=== PATIENT | male | born 1950 | race Caucasian/White ===

== ENCOUNTER → 2016-04-21 | Outpatient (CLI) | payer OTHER ==
[2016-04-21 19:42] LABS: INR 2.6 (<1.1); Prothrombin Time 24.8 sec (9.0-12.0)
== END | disposition home or self-care (01) ==
LOC: MMGSC 14:25
PROVIDERS: ATTEND Internal Medicine Cardiovascular Disease
DX: I48.2 Chronic atrial fibrillation (principal); Z95.2 Presence of prosthetic heart valve
CPT/HCPCS: 36415; 85610

== ENCOUNTER → 2016-05-16 | Outpatient (CLI) | payer OTHER ==
[2016-05-16 20:17] LABS: INR 3.3 (<1.1); Prothrombin Time 32.2 sec (9.0-12.0)
== END | disposition home or self-care (01) ==
LOC: MMGSC 10:42
PROVIDERS: ATTEND Internal Medicine Cardiovascular Disease
DX: I48.2 Chronic atrial fibrillation (principal); Z95.2 Presence of prosthetic heart valve
CPT/HCPCS: 36415; 85610

== ENCOUNTER → 2016-06-26 | Outpatient (CLI) | payer OTHER ==
[2016-06-26 19:32] LABS: Prothrombin Time 29.1 sec (9.0-12.0)
== END | disposition home or self-care (01) ==
LOC: MMGSC 11:35
PROVIDERS: ATTEND Internal Medicine Cardiovascular Disease
DX: I48.2 Chronic atrial fibrillation (principal); Z95.2 Presence of prosthetic heart valve
CPT/HCPCS: 36415; 85610

== ENCOUNTER → 2016-07-25 | Outpatient (CLI) | payer OTHER ==
[2016-07-25 18:55] LABS: INR 3.6 (<1.1); Prothrombin Time 34.7 sec (9.0-12.0)
== END ==
LOC: MMGSC 14:26
PROVIDERS: ATTEND Internal Medicine Cardiovascular Disease
DX: I48.2 Chronic atrial fibrillation (principal); Z95.2 Presence of prosthetic heart valve
CPT/HCPCS: 36415; 85610

== ENCOUNTER → 2016-09-12 | Outpatient (CLI) | payer OTHER ==
[2016-09-12 18:15] LABS: INR 3.4 (<1.1); Prothrombin Time 32.8 sec (9.0-12.0)
== END | disposition home or self-care (01) ==
LOC: MMGSC 11:53
PROVIDERS: ATTEND Internal Medicine Cardiovascular Disease
DX: I48.2 Chronic atrial fibrillation (principal); Z95.2 Presence of prosthetic heart valve
CPT/HCPCS: 36415; 85610

== ENCOUNTER → 2016-11-03 | Outpatient (CLI) | payer OTHER ==
[2016-11-03 20:17] LABS: INR 3.7 (<1.2); Prothrombin Time 36.1 sec (9.0-12.0)
== END ==
LOC: MMGSC 11:42
PROVIDERS: ATTEND Internal Medicine Cardiovascular Disease
DX: I48.2 Chronic atrial fibrillation (principal); Z95.2 Presence of prosthetic heart valve
CPT/HCPCS: 36415; 85610

== ENCOUNTER → 2016-12-18 | Outpatient (CLI) | payer OTHER ==
[2016-12-18 22:41] LABS: INR 4.1 (<1.2); Prothrombin Time 39.9 sec (9.0-12.0)
== END ==
LOC: MMGSC 11:32
PROVIDERS: ATTEND Internal Medicine Cardiovascular Disease
DX: I48.2 Chronic atrial fibrillation (principal); Z95.2 Presence of prosthetic heart valve
CPT/HCPCS: 36415; 85610

== ENCOUNTER → 2017-05-05 | Outpatient (CLI) | payer OTHER ==
[2017-05-05 22:20] LABS: Basophils % (A) 1 %; Eosinophils # (A) 0.1 k/uL (0-0.7); Eosinophils % (A) 1 %; HCT 44.6 % (39.0-53.0); HGB 13.9 gm/dL (13.0-17.5); Lymphocytes # (A) 1.1 k/uL (1.0-4.8); Lymphocytes % (A) 25 %; MCH 29.9 pg (25.0-35.0); MCHC 31.2 g/dL (31.0-37.0); MCV 95.7 fL (80.0-100.0); Mean Platelet Volume 10.7; Monocytes # (A) 0.4 k/uL (0-1.0); Monocytes % (A) 9 %; Neutrophils # (A) 2.7 k/uL (1.3-7.7); Neutrophils % (A) 62 %; Platelet Count 188 k/uL (150-450); RBC 4.66 m/uL (4.30-5.90); RDW 13.5 % (11.5-15.5); WBC 4.3 k/uL (3.8-10.6)
== END | disposition home or self-care (01) ==
LOC: MMGSC 12:01
PROVIDERS: ATTEND Internal Medicine
DX: D72.819 Decreased white blood cell count, unspecified (principal)
CPT/HCPCS: 36415; 85025

== ENCOUNTER → 2017-05-05 | Outpatient (CLI) | payer OTHER ==
[2017-05-05 18:43] LABS: INR 3.4 (<1.2); Prothrombin Time 30.1 sec (9.0-12.0)
== END | disposition home or self-care (01) ==
LOC: MMGSC 12:06
PROVIDERS: ATTEND Internal Medicine Cardiovascular Disease
DX: I48.2 Chronic atrial fibrillation (principal); Z95.2 Presence of prosthetic heart valve
CPT/HCPCS: 85610

== ENCOUNTER → 2017-07-02 | Outpatient (CLI) | payer OTHER ==
[2017-07-02 18:29] LABS: INR 3.7 (<1.2); Prothrombin Time 33.2 sec (9.0-12.0)
== END | disposition home or self-care (01) ==
LOC: MMGSC 10:21
PROVIDERS: ATTEND Internal Medicine Cardiovascular Disease
DX: I48.2 Chronic atrial fibrillation (principal); Z95.2 Presence of prosthetic heart valve
CPT/HCPCS: 36415; 85610

== ENCOUNTER 2017-09-01 11:49 | Emergency (ER) | payer OTHER ==
--- NOTE | 2017-09-01 12:20 | ED ---
Lower Extremity Injury HPI - General Chief Complaint: Extremity Injury, Lower Stated Complaint: LEFT KNEE/ANLKE INJURY Time Seen by Provider: 09/01/17 12:12 Source: patient Mode of arrival: wheelchair Limitations: no limitations - History of Present Illness Initial Comments: 66 year-old male patient presented to the emergency department today for evaluation of left knee pain and instability. Patient states that approximately an hour and a half ago he was walking up the stairs when he twisted his left knee. Patient states that he has some pain but his chief concern is that the knee feels unstable like it wants to give out. Patient states it feels like it is collapsing in to the medial aspect. States it is swollen. Denies any difficulty with range of motion however does report increased pain with full flexion. Patient denies any falls or other injuries. Denies any numbness or tingling to the extremity. Patient denies any headache, neck pain, back pain, chest pain, shortness of breath, dizziness, weakness, abdominal pain, nausea, vomiting, or difficulties with bowel movements or urination. - Related Data Home Medications Medication Instructions Recorded Confirmed Diltiazem HCl 120 mg PO DAILY 09/01/17 09/01/17 Metoprolol Succinate [Toprol Xl] 50 mg PO DAILY 09/01/17 09/01/17 Multivitamin [Men's Multi-Vitamin] 1 each PO DAILY 09/01/17 09/01/17 Rosuvastatin [Crestor] 20 mg PO DAILY 09/01/17 09/01/17 Warfarin [Coumadin] 7.5 mg PO DAILY 09/01/17 09/01/17 Allergies Allergy/AdvReac Type Severity Reaction Status Date / Time No Known Allergies Allergy Verified 09/01/17 12:00 Review of Systems ROS Statement: Those systems with pertinent positive or pertinent negative responses have been documented in the HPI. ROS Other: All systems not noted in ROS Statement are negative. Past Medical History Past Medical History: Hyperlipidemia, Hypertension History of Any Multi-Drug Resistant Organisms: None Reported Past Surgical History: Bowel Resection, Hernia Repair Additional Past Surgical History / Comment(s): vasectomy, mechanical mitral valve Past Psychological History: No Psychological Hx Reported Smoking Status: Never smoker Past Alcohol Use History: None Reported Past Drug Use History: None Reported General Exam Limitations: no limitations General appearance: alert, in no apparent distress, other (This is a well- developed, well-nourished adult male patient in no acute distress. Vital signs upon presentation are temperature 97.7F, pulse 66, respirations 16, blood pressure 98/58, pulse ox 97% on room air.) Eye exam: Present: normal appearance, PERRL, EOMI. Absent: scleral icterus, conjunctival injection, periorbital swelling ENT exam: Present: normal exam, normal oropharynx, mucous membranes moist Respiratory exam: Present: normal lung sounds bilaterally. Absent: respiratory distress, wheezes, rales, rhonchi, stridor Cardiovascular Exam: Present: regular rate, normal rhythm, normal heart sounds. Absent: systolic murmur, diastolic murmur, rubs, gallop, clicks Extremities exam: Present: full ROM, tenderness (Left medial knee tenderness), normal capillary refill, joint swelling (Swelling to the medial aspect of the left knee), other (Patient has full range of motion to the left knee, increased pain with full flexion. No instability or pain noted to valgus or varus maneuvers. Skin to the leg is pink, warm, and dry. Cap refills less than 3 seconds. Pedal and posttibial pulses are 2+ and equal bilaterally.). Absent: normal inspection, pedal edema, calf tenderness Neurological exam: Present: alert, oriented X3, CN II-XII intact Psychiatric exam: Present: normal affect, normal mood Skin exam: Present: warm, dry, intact, normal color. Absent: rash Course Vital Signs 09/01/17 09/01/17 11:55 13:17 Temperature 97.7 F 97.8 F Pulse Rate 66 86 Respiratory 16 18 Rate Blood Pressure 98/58 110/80 O2 Sat by Pulse 97 98 Oximetry Medical Decision Making - Medical Decision Making 66-year-old male patient presented to the emergency department today for evaluation of left knee pain after he twisted it today. Physical examination does reveal some mild swelling. Patient has no laxity with valgus or varus maneuvers. X-ray did show mild knee joint effusion. Patient will be placed in a knee immobilizer and instructed to follow-up with orthopedics for further evaluation. He is instructed to take Tylenol for pain control. He is instructed regarding ice and elevation. Return parameters discussed in detail. He verbalizes understanding and agrees with this plan. - Radiology Data Radiology results: report reviewed, image reviewed 3 views of the left knee are obtained. There is no acute fracture or dislocation evident. The tricompartment joint spaces appear within normal limits. Increased density suprapatellar bursa could reflect small to moderate joint effusion, nonspecific finding. Posterior soft tissue vascular calcification is present. Impression by Dr. Duque shows no acute fracture dislocation the left knee. Disposition Clinical Impression: Left knee sprain Disposition: HOME SELF-CARE Condition: Good Instructions: Knee Sprain (ED) Additional Instructions: Wear knee immobilizer for support while ambulating. Take Tylenol for pain control. Follow-up with orthopedics for further evaluation. Return here immediately for any new, worsening, or concerning symptoms. Is patient prescribed a controlled substance at d/c from ED?: No Referrals: Maren Murguia DO [Primary Care Provider] - 1-2 days Jose Borden DO [Doctor of Osteopathic Medicine] - 1-2 days Time of Disposition: 12:47
--- NOTE | 2017-09-01 12:33 | XR ---
EXAMINATION TYPE: XR knee complete LT DATE OF EXAM: 09/01/2017 CLINICAL HISTORY: Fall injury today with pain. TECHNIQUE: Three views of the left knee are obtained. COMPARISON: None. FINDINGS: There is no acute fracture/dislocation evident in left knee. The tri-compartment joint sp aces appear within normal limits. Increased density suprapatellar bursa could reflect small to modera te-sized joint effusion, nonspecific finding. Posterior soft tissue vascular calcification is present . IMPRESSION: There is no acute fracture or dislocation in the left knee.
[2017-09-01 13:18] VITALS: BP 110/80; PULSE 86; RESP 18; TEMP 97.8
== END 2017-09-01 13:17 | disposition home or self-care (01) ==
LOC: EC 11:49
DX: S83.92XA Sprain of unspecified site of left knee, initial encounter (principal); M25.462 Effusion, left knee; E78.5 Hyperlipidemia, unspecified; I10 Essential (primary) hypertension; Z79.01 Long term (current) use of anticoagulants; Z79.899 Other long term (current) drug therapy; X50.1XXA Overexertion from prolonged static or awkward postures, initial encounter; Y93.01 Activity, walking, marching and hiking; Y92.008 Other place in unspecified non-institutional (private) residence as the place of occurrence of the external cause
CPT/HCPCS: 73562; 99283; L1830

== ENCOUNTER 2017-09-06 14:48 | Inpatient (IN) | payer MEDICARE, OTHER ==
--- NOTE | 2017-09-06 15:20 | ED ---
Lower Extremity Injury HPI - General Chief Complaint: Extremity Injury, Lower Stated Complaint: knee pain-revisit Time Seen by Provider: 09/06/17 14:55 Source: patient, RN notes reviewed, old records reviewed Mode of arrival: wheelchair Limitations: no limitations - History of Present Illness Initial Comments: 66-year-old male presents emergency department increased left knee pain and swelling. He reports that he had a follow-up with Dr. Subramanian tomorrow. He was seen and evaluated 3 days ago And x-rays. X-rays were negative for any acute fracture. He is placed in knee immobilizer. He reports that there is worsening bruising over the lower leg. Also severe swelling of the knee. He reports that he feels warm. He is on Coumadin, for mechanical heart valve. He reports that he has no other symptoms. - Related Data Home Medications Medication Instructions Recorded Confirmed Diltiazem HCl 120 mg PO DAILY 09/01/17 09/01/17 Metoprolol Succinate [Toprol Xl] 50 mg PO DAILY 09/01/17 09/01/17 Multivitamin [Men's Multi-Vitamin] 1 each PO DAILY 09/01/17 09/01/17 Rosuvastatin [Crestor] 20 mg PO DAILY 09/01/17 09/01/17 Warfarin [Coumadin] 7.5 mg PO DAILY 09/01/17 09/01/17 Allergies Allergy/AdvReac Type Severity Reaction Status Date / Time No Known Allergies Allergy Verified 09/06/17 14:52 Review of Systems ROS Statement: Those systems with pertinent positive or pertinent negative responses have been documented in the HPI. ROS Other: All systems not noted in ROS Statement are negative. Past Medical History Past Medical History: Hyperlipidemia, Hypertension History of Any Multi-Drug Resistant Organisms: None Reported Past Surgical History: Bowel Resection, Hernia Repair Additional Past Surgical History / Comment(s): vasectomy, mechanical mitral valve Past Psychological History: No Psychological Hx Reported Smoking Status: Never smoker Past Alcohol Use History: None Reported Past Drug Use History: None Reported General Exam - General Exam Comments Initial Comments: Well-appearing 66 year old male, alert and oriented. Limitations: no limitations General appearance: alert, in no apparent distress Head exam: Present: atraumatic, normocephalic, normal inspection Eye exam: Present: normal appearance, PERRL, EOMI. Absent: scleral icterus, conjunctival injection, periorbital swelling ENT exam: Present: normal exam, mucous membranes moist Neck exam: Present: normal inspection. Absent: tenderness, meningismus, lymphadenopathy Respiratory exam: Present: normal lung sounds bilaterally. Absent: respiratory distress, wheezes, rales, rhonchi, stridor Cardiovascular Exam: Present: regular rate, normal rhythm, normal heart sounds. Absent: systolic murmur, diastolic murmur, rubs, gallop, clicks GI/Abdominal exam: Present: soft, normal bowel sounds. Absent: distended, guarding, rebound, rigid Extremities exam: Present: normal inspection, full ROM, normal capillary refill , other (left knee swelling and pain with range of motion. Significant joint effusion. Use warmto touch. Normal pulses distally.). Absent: tenderness, pedal edema, joint swelling, calf tenderness Back exam: Present: normal inspection Neurological exam: Present: alert Psychiatric exam: Present: normal affect, normal mood Skin exam: Present: warm, dry, intact, normal color. Absent: rash Course Vital Signs 09/06/17 14:49 Temperature 98.3 F Pulse Rate 77 Respiratory 18 Rate Blood Pressure 151/85 O2 Sat by Pulse 96 Oximetry Medical Decision Making - Medical Decision Making 56 show male history of mechanical heart valve on Coumadin presents 3 days post fall. He complains worsening redness swelling and pain to the left knee. It x- ray done 3 days ago show no fracture. Today we completed CT. Evidence of tibial plateau fracture. Significant hemarthrosis. Patient informed of these results. Discusses Dr. Delacruz. With the hemarthrosis and tibial plateau fracture would like to make the Patient for further evaluation. He cannot receive an MRI due to mechanical heart valve. We discussed case with Dr. Perikns whom Patient was planning to see tomorrow. Naina the Patient to Dr. Nguyen with consult to cardiology as the mechanical heart valve and Coumadin management and Dr. Subramanian. - Radiology Data Radiology results: report reviewed Interpreted by me: CT of the knee shows fluid level inside the joint space indicating moderate hemarthrosis. Avulsed fragment of the posterior cortex of the lateral Tibial condyle. This is a small bony fragment measuring 1 x 3 mm. Described as on the sagittal projection. Cortical irregularities also noted with anterior portion of the distal finger pad at patella. Difficult to exclude a hairline fracture of the distal femur all up abscess. MRI of the knee could be performed to further evaluate meniscus and cruciate ligaments. Disposition Clinical Impression: Tibial plateau fracture, Hemarthrosis, Mechanical heart valve present, History of Coumadin therapy Disposition: ADMITTED IP TO THIS HOSP Is patient prescribed a controlled substance at d/c from ED?: No Referrals: Maren Murguia DO [Primary Care Provider] - 1-2 days Time of Disposition: 17:08
--- NOTE | 2017-09-06 15:56 | CT ---
EXAMINATION TYPE: CT knee LT wo con DATE OF EXAM: 09/06/2017 COMPARISON: X-rays of the knee dated 09/01/2017. HISTORY: Left knee pain and swelling after fall x5 days ago. CT DLP: 2576 mGycm Automated exposure control for dose reduction was used. FINDINGS: Moderate amount of fluid fluid levels inside the joint space indicating hemarthrosis. Nondisplaced ve rtical fractures involving the subchondral surface of the posterior portion of the lateral proximal t ibial condyle. There is a small avulsed bony fragment posteriorly measuring 1 mm x 3 mm in length. This is visible o n the sagittal image labeled #21. Cortical irregularity also is present behind the patella along the distal femoral condyle at the leve l of the epiphysis. Cannot exclude an occult hairline fracture of the distal femur. Impression: Fluid fluid level inside the joint space indicating a moderate amount of hemarthrosis. Avulsed fragment of the posterior cortex of the lateral proximal tibial condyle. This is small bony f ragment measuring 1 x 3 mm as described above visible on the sagittal projection. Cortical irregularity is also noted along the anterior portion of the distal femur just behind the pa tella. Difficult to exclude an occult hairline fracture of the distal femoral epiphysis. MRI of the k nee could be performed to further evaluate the meniscus and cruciate ligaments.
[2017-09-06] MEDS ORDERED: MORPHINE SULFATE 2 MG/ML SYRINGE IV PRN (17:10)
[2017-09-06] MEDS ORDERED: IBUPROFEN 400 MG TAB PO PRN (17:10)
[2017-09-06] MEDS ORDERED: ONDANSETRON 4 MG/2 ML VIAL IVP PRN (17:10)
[2017-09-06] MEDS ORDERED: ACETAMINOPHEN TAB 325 MG TAB PO PRN (17:10)
[2017-09-06] MEDS ORDERED: NALOXONE 0.4 MG/ML 1 ML VIAL IV PRN ×2 (17:10→17:41)
[2017-09-06 17:27] LABS: Basophils % (A) 0 %; Eosinophils # (A) 0.1 k/uL (0-0.7); Eosinophils % (A) 1 %; HCT 38.5 % (39.0-53.0); HGB 12.6 gm/dL (13.0-17.5); Lymphocytes # (A) 1.2 k/uL (1.0-4.8); Lymphocytes % (A) 16 %; MCH 30.3 pg (25.0-35.0); MCHC 32.9 g/dL (31.0-37.0); MCV 92.1 fL (80.0-100.0); Mean Platelet Volume 8.2; Monocytes # (A) 0.4 k/uL (0-1.0); Monocytes % (A) 6 %; Neutrophils # (A) 5.5 k/uL (1.3-7.7); Neutrophils % (A) 75 %; Platelet Count 201 k/uL (150-450); RBC 4.17 m/uL (4.30-5.90); RDW 13.8 % (11.5-15.5); WBC 7.3 k/uL (3.8-10.6)
[2017-09-06 17:30] LABS: Appearance,Urine Clear (Clear); Bacteria,Urine Rare /hpf; Bilirubin,Urine Negative (Negative); Blood,Urine Small (Negative); Color,Urine Yellow; Glucose,Urine (UA) Negative (Negative); Hyaline Casts,Urine 3 /lpf (0-2); Ketones,Urine 2+ (Negative); Leukocyte Esterase,Urine Negative (Negative); Mucus,Urine Many /hpf; Nitrite,Urine Negative (Negative); Protein,Urine Trace (Negative); RBC,Urine 5 /hpf (0-5); Specific Gravity,Urine 1.023 (1.001-1.035); Squamous Epithelial Cell,Urine <1 /hpf (0-4); Urobilinogen,Urine <2.0 mg/dL (<2.0); WBC,Urine 1 /hpf (0-5)
[2017-09-06 17:37] LABS: INR 3.4 (<1.2); Partial Thromboplastin Time 34.7 sec (22.0-30.0); Prothrombin Time 30.2 sec (9.0-12.0)
[2017-09-06 17:42] LABS: ALT 30 U/L (21-72); AST 50 U/L (17-59); Albumin 4.3 g/dL (3.5-5.0); Alkaline Phosphatase 76 U/L (38-126); Anion Gap 13 mmol/L; Blood Urea Nitrogen 13 mg/dL (9-20); Calcium 9.4 mg/dL (8.4-10.2); Carbon Dioxide 27 mmol/L (22-30); Chloride 102 mmol/L (98-107); Glucose 94 mg/dL (74-99); Potassium 4.2 mmol/L (3.5-5.1); Sodium 142 mmol/L (137-145); Total Bilirubin 1.1 mg/dL (0.2-1.3); Total Protein 7.1 g/dL (6.3-8.2)
[2017-09-06] MEDS ORDERED: ACETAMINOPHEN TAB 500 MG TAB PO PRN (17:42)
--- NOTE | 2017-09-06 17:54 | P.HPIM ---
History of Present Illness H&P Date: 09/06/17 Chief Complaint: Left knee pain 66-year-old male presented emergency department twice over the last several days because of increased left knee pain and swelling after a fall. He had a mechanical fall while he was trying to go upstairs. He landed on his left foot while his left knee was twisted. Since the fall he has been having a lot of pain in the left knee. He was seen and evaluated 3 days ago in the emergency department with left knee x-rays and that was negative for any acute fracture. He is placed in knee immobilizer. Left knee has also been getting more and more swollen and the bruising over it is becoming more extensive. Currently feels very tight. He was supposed to see Dr. Subramanian tomorrow for the left knee pain but because the symptoms have been gradually becoming progressive and intolerable he came in to the ER. Patient is on Coumadin, for mechanical heart valve. He reports that he has no other symptoms including chest pain, shortness of breath, dizziness, palpitations, nausea or vomiting, fevers or chills. Review of Systems 12 point review of system performed, negative except HPI Past Medical History Past Medical History: Hyperlipidemia, Hypertension Additional Past Medical History / Comment(s): Atrial fibrillation History of Any Multi-Drug Resistant Organisms: None Reported Past Surgical History: Bowel Resection, Hernia Repair Additional Past Surgical History / Comment(s): vasectomy, mechanical mitral valve Past Psychological History: No Psychological Hx Reported Smoking Status: Never smoker Past Alcohol Use History: None Reported Past Drug Use History: None Reported Medications and Allergies Home Medications Medication Instructions Recorded Confirmed Type Diltiazem HCl 120 mg PO DAILY@169909/01/17 09/06/17 History Metoprolol Succinate [Toprol Xl] 50 mg PO DAILY@169909/01/17 09/06/17 History Multivitamin [Men's Multi-Vitamin] 1 tab PO DAILY 09/01/17 09/06/17 History Rosuvastatin [Crestor] 20 mg PO DAILY 09/01/17 09/06/17 History Warfarin [Coumadin] 7.5 mg PO DAILY 09/01/17 09/06/17 History Acetaminophen Tab [Tylenol Tab] 1,000 mg PO Q6HR PRN 09/06/17 09/06/17 History Allergies Allergy/AdvReac Type Severity Reaction Status Date / Time No Known Allergies Allergy Verified 09/06/17 17:20 Physical Exam Vitals: Vital Signs Temp Pulse Resp BP Pulse Ox 09/06/17 17:02 100 16 151/92 99 09/06/17 14:49 98.3 F 77 18 151/85 96 Intake and Output 09/06/17 09/06/17 09/06/17 06:59 14:59 22:59 Other: Weight 79.379 kg Constitutional: No acute distress, conversant, pleasant Eyes:Anicteric sclerae, moist conjunctiva, no lid-lag, PERRLA, ENMT: Oropharynx clear, no erythema, exudates Neck: Supple, FROM, no masses, or JVD, No carotid bruits, No thyromegaly Lungs: Clear to auscultation, Clear to percussion, Normal respiratory effort, no accessory muscle use Cardiovascular: Heart regular in rate and rhythm, No murmurs, gallops, or rubs, No peripheral edema Abdominal: Soft, Nontender, no guarding, rebound or rigidity, Normoactive bowel sounds, No hepatomegaly, No splenomegaly, No palpable mass Skin: Normal temperature, tone, texture, turgor, no induration, No subcutaneous nodules, No rash, lesions, No ulcers Extremities: Left lower extremity placed in an immobilizer. Left knee swollen and tender to touch. No digital cyanosis, No clubbing, Pedal pulses intact and symmetrical, Radial pulses intact and symmetrical, No calf tenderness Psychiatric: Alert and oriented to person, place and time, appropriate affect, intact judgement Neuro: Muscles Strength 5/5 in all 4 extremities, Sensation to light touch grossly present throughout, Cranial nerves II-XII grossly intact, no focal sensory deficits Results CBC & Chem 7: 09/06/17 17:14 09/06/17 17:14 Labs: Abnormal Lab Results - Last 24 Hours (Table) 09/06/17 09/06/17 09/06/17 Range/Units 17:14 17:14 17:14 RBC 4.17 L (4.30-5.90) m/uL Hgb 12.6 L (13.0-17.5) gm/dL Hct 38.5 L (39.0-53.0) % PT 30.2 H (9.0-12.0) sec INR 3.4 H (<1.2) APTT 34.7 H (22.0-30.0) sec Urine Protein Trace H (Negative) Urine Ketones 2+ H (Negative) Urine Blood Small H (Negative) Urine Bacteria Rare H (None) /hpf Hyaline Casts 3 H (0-2) /lpf Urine Mucus Many H (None) /hpf Assessment and Plan Plan: Left knee swelling and pain/Hemarthrosis: Computed tomography scan of the left knee was reviewed Orthopedics service contacted by emergency physician Plan for surgery in a.m. History of atrial fibrillation/status post mechanical mitral valve replacement: Consult cardiology Hold Coumadin for tonight, INR 3.4 Resume Cardizem and metoprolol Hyperlipidemia Continue statin DVT prophylaxis Already on coumadin, INR therapeutic
[2017-09-06] MEDS: HYDROcodone/APAP 5-325MG 1 EACH TAB PO PRN (18:35)
[2017-09-06] MEDS: SODIUM CHLORIDE 0.9% 1,000 ML IV SCH (23:40)
[2017-09-07] MEDS: HYDROcodone/APAP 5-325MG 1 EACH TAB PO PRN ×2 (04:34→22:48)
[2017-09-07] MEDS: SODIUM CHLORIDE 0.9% 1,000 ML IV SCH ×3 (04:35→17:31)
[2017-09-07 07:19] LABS: Basophils % (A) 1 %; Eosinophils # (A) 0.1 k/uL (0-0.7); Eosinophils % (A) 1 %; HCT 35.6 % (39.0-53.0); HGB 11.5 gm/dL (13.0-17.5); Lymphocytes # (A) 1.1 k/uL (1.0-4.8); Lymphocytes % (A) 19 %; MCH 30.2 pg (25.0-35.0); MCHC 32.4 g/dL (31.0-37.0); MCV 93.2 fL (80.0-100.0); Mean Platelet Volume 7.9; Monocytes # (A) 0.5 k/uL (0-1.0); Monocytes % (A) 9 %; Neutrophils # (A) 4.2 k/uL (1.3-7.7); Neutrophils % (A) 69 %; Platelet Count 181 k/uL (150-450); RBC 3.82 m/uL (4.30-5.90); RDW 13.8 % (11.5-15.5)
[2017-09-07 07:27] LABS: INR 4.3 (<1.2); Prothrombin Time 38.6 sec (9.0-12.0)
[2017-09-07 07:43] LABS: Anion Gap 7 mmol/L; Blood Urea Nitrogen 12 mg/dL (9-20); Calcium 8.8 mg/dL (8.4-10.2); Carbon Dioxide 28 mmol/L (22-30); Chloride 105 mmol/L (98-107); Glucose 93 mg/dL (74-99); Phosphorus 3.3 mg/dL (2.5-4.5); Potassium 4.3 mmol/L (3.5-5.1); Sodium 140 mmol/L (137-145)
[2017-09-07] MEDS: ATORVASTATIN 40 MG TAB PO SCH (07:43)
--- NOTE | 2017-09-07 08:04 | P.HPOR ---
History of Present Illness H&P Date: 09/07/17 Chief Complaint: Left knee pain The patient's a 66-year-old male who presents with left knee pain after an injury at home approximately 5 days ago. He fell down the stairs. He twisted his left knee. He notes progressive swelling and pain ever since. He was admitted from the emergency room last night. He is able to partial weight-bear with crutches. He denies previous injury. Review of Systems Musculoskeletal: Reports as per HPI Musculoskeletal: left: knee swelling Past Medical History Past Medical History: Hyperlipidemia, Hypertension Additional Past Medical History / Comment(s): Atrial fibrillation History of Any Multi-Drug Resistant Organisms: None Reported Past Surgical History: Bowel Resection, Cardiac Valve Replacement, Hernia Repair Additional Past Surgical History / Comment(s): vasectomy, mechanical mitral valve Past Psychological History: No Psychological Hx Reported Smoking Status: Never smoker Past Alcohol Use History: None Reported Past Drug Use History: None Reported - Past Family History Father Family Medical History: No Reported History Mother Family Medical History: No Reported History Medications and Allergies Home Medications Medication Instructions Recorded Confirmed Type Diltiazem HCl 120 mg PO DAILY@1700 09/01/17 09/06/17 History Metoprolol Succinate [Toprol Xl] 50 mg PO DAILY@1700 09/01/17 09/06/17 History Multivitamin [Men's Multi-Vitamin] 1 tab PO DAILY 09/01/17 09/06/17 History Rosuvastatin [Crestor] 20 mg PO DAILY 09/01/17 09/06/17 History Warfarin [Coumadin] 7.5 mg PO DAILY 09/01/17 09/06/17 History Acetaminophen Tab [Tylenol Tab] 1,000 mg PO Q6HR PRN 09/06/17 09/06/17 History Allergies Allergy/AdvReac Type Severity Reaction Status Date / Time No Known Allergies Allergy Verified 09/06/17 17:20 Physical Examination - Knee left Appearance: effusion Effusion grade: grade 3 Tenderness with palpation: medial Pain: throughout ROM Gait: limping ROM: extension: -10 degrees ROM: flexion: 50 degrees Stability exam: medial: grade 2 (Marked guarding) Results - Labs Labs: Abnormal Lab Results - Last 24 Hours (Table) 09/06/17 09/06/17 09/06/17 Range/Units 17:14 17:14 17:14 RBC 4.17 L (4.30-5.90) m/uL Hgb 12.6 L (13.0-17.5) gm/dL Hct 38.5 L (39.0-53.0) % PT 30.2 H (9.0-12.0) sec INR 3.4 H (<1.2) APTT 34.7 H (22.0-30.0) sec Urine Protein Trace H (Negative) Urine Ketones 2+ H (Negative) Urine Blood Small H (Negative) Urine Bacteria Rare H (None) /hpf Hyaline Casts 3 H (0-2) /lpf Urine Mucus Many H (None) /hpf 09/07/17 09/07/17 Range/Units 06:34 06:34 RBC 3.82 L (4.30-5.90) m/uL Hgb 11.5 L (13.0-17.5) gm/dL Hct 35.6 L (39.0-53.0) % PT 38.6 H (9.0-12.0) sec INR 4.3 H (<1.2) APTT (22.0-30.0) sec Urine Protein (Negative) Urine Ketones (Negative) Urine Blood (Negative) Urine Bacteria (None) /hpf Hyaline Casts (0-2) /lpf Urine Mucus (None) /hpf H & H 18 09/07/17 Range/Units 17:14 06:34 Hgb 12.6 L 11.5 L (13.0-17.5) gm/dL Hct 38.5 L 35.6 L (39.0-53.0) % Coagulation 09/06/17 09/07/17 Range/Units 17:14 06:34 INR 3.4 H 4.3 H (<1.2) Result Diagrams: 09/07/17 06:34 09/07/17 06:34 - Diagnostic results Knee CT: report reviewed (Small avulsion posterior lateral tibial plateau) Assessment and Plan Assessment: Left knee grade 2/3 MCL sprain, large hemarthrosis, proximal tibial avulsion fracture Plan: I talked to the patient regarding his condition and treatment options. I recommend conservative measures. We will have him continue with the knee immobilizer for 1 week and then likely transition him to a hinged knee brace. He can partial weight-bear as tolerated with crutches. I will plan on aspiration of his left knee later today and possible discharge home today. Time with Patient: Less than 30
[2017-09-07] MEDS ORDERED: PANTOPRAZOLE 40 MG/10 ML VIAL IV SCH (09:00)
[2017-09-07] MEDS ORDERED: MULTIVITAMINS, THERA 1 EACH TAB PO SCH (12:00)
--- NOTE | 2017-09-07 13:35 | P.PCN ---
Date of Procedure: 09/07/17 Preoperative Diagnosis: Left knee hemarthrosis Postoperative Diagnosis: Same Procedure(s) Performed: Left knee aspiration Implants: None Anesthesia: local Surgeon: Shar Lanier Condition: stable Disposition: no change Indications for Procedure: Patient was initially evaluated by Dr. Subramanian in the hospital setting after this patient had a fall down some stairs about a week ago. We will reconsult with regards to left knee pain and swelling. Dr. Subramanian discussed the patient the possibility of an aspiration procedure. Description of Procedure: We again discussed the benefits and risk of aspiration today. Patient is in good understanding and would like to proceed. A consent form in timeout was performed prior to the procedure. Patient was in the supine position, the knee was prepped with 1 ChloraPrep swab and one alcohol swabs. A 20-gauge needle was then used to inject 2 mL 1% plain lidocaine via the supra patellar region. I then aspirated about 30 mL of bloody serosanguineous fluid. Patient tolerated the procedure well. Instructions for discharge provided.
--- NOTE | 2017-09-07 13:36 | P.PN ---
Subjective Progress Note Date: 09/07/17 Principal diagnosis: Left knee hemarthrosis Patient was evaluated today at bedside. He had discussed with Dr. Subramanian today the possibility of doing an aspiration involving the left knee. Patient would like proceed with that. His symptoms remain the same at this time. Objective - Vital Signs Vital signs: Vital Signs Temp 98.6 F 09/07/17 07:24 Pulse 94 09/07/17 07:24 Resp 16 09/07/17 07:24 BP 133/94 09/07/17 07:24 Pulse Ox 96 09/07/17 07:24 Intake & Output 09/06/17 09/07/17 09/07/17 18:59 06:59 18:59 Weight 79.379 kg Other: # Voids 1 - Exam Left knee: Obvious effusion present over the anterior aspect of the knee, no significant ecchymosis or soft tissue injury surrounding the knee. There is some ecchymosis noted in the anterior tibial region. The calf is soft, no tenderness with palpation Plantar flexion, dorsiflexion, EHL, FHL are intact. Sensory exam to light touch is intact. His dorsal pedis pulses 2+. - Labs CBC & Chem 7: 09/07/17 06:34 09/07/17 06:34 Labs: Abnormal Lab Results - Last 24 Hours (Table) 09/06/17 09/06/17 09/06/17 Range/Units 17:14 17:14 17:14 RBC 4.17 L (4.30-5.90) m/uL Hgb 12.6 L (13.0-17.5) gm/dL Hct 38.5 L (39.0-53.0) % PT 30.2 H (9.0-12.0) sec INR 3.4 H (<1.2) APTT 34.7 H (22.0-30.0) sec Urine Protein Trace H (Negative) Urine Ketones 2+ H (Negative) Urine Blood Small H (Negative) Urine Bacteria Rare H (None) /hpf Hyaline Casts 3 H (0-2) /lpf Urine Mucus Many H (None) /hpf 09/07/17 09/07/17 Range/Units 06:34 06:34 RBC 3.82 L (4.30-5.90) m/uL Hgb 11.5 L (13.0-17.5) gm/dL Hct 35.6 L (39.0-53.0) % PT 38.6 H (9.0-12.0) sec INR 4.3 H (<1.2) APTT (22.0-30.0) sec Urine Protein (Negative) Urine Ketones (Negative) Urine Blood (Negative) Urine Bacteria (None) /hpf Hyaline Casts (0-2) /lpf Urine Mucus (None) /hpf Assessment and Plan Plan: Assessment: Left knee hemarthrosis Plan: I did proceed with aspiration procedure, see procedure note for further detail Patient is stable via the orthopedic standpoint for discharge to home. He will utilize the knee immobilizer and crutches with toe-touch weightbearing over the next week He was notified to schedule outpatient follow-up with Dr. Subramanian in 1 week for further evaluation Time with Patient: Less than 30
--- NOTE | 2017-09-07 14:51 | P.PN ---
Subjective Progress Note Date: 09/07/17 Principal diagnosis: Left knee pain and swelling. Patient just had left knee aspiration, 30cc of bloody fluid was aspirated from the left knee today. Currently feeling better. Objective - Vital Signs Vital signs: Vital Signs Temp 98.6 F 09/07/17 07:24 Pulse 94 09/07/17 07:24 Resp 16 09/07/17 07:24 BP 133/94 09/07/17 07:24 Pulse Ox 96 09/07/17 07:24 Intake & Output 09/06/17 09/07/17 09/07/17 18:59 06:59 18:59 Weight 79.379 kg Other: # Voids 1 - Exam Constitutional: No acute distress, conversant, pleasant Eyes:Anicteric sclerae, moist conjunctiva, no lid-lag, PERRLA, ENMT: Oropharynx clear, no erythema, exudates Neck: Supple, FROM, no masses, or JVD, No carotid bruits, No thyromegaly Lungs: Clear to auscultation, Clear to percussion, Normal respiratory effort, no accessory muscle use Cardiovascular: Heart regular in rate and rhythm, No murmurs, gallops, or rubs, No peripheral edema Abdominal: Soft, Nontender, no guarding, rebound or rigidity, Normoactive bowel sounds, No hepatomegaly, No splenomegaly, No palpable mass Skin: Normal temperature, tone, texture, turgor, no induration, No subcutaneous nodules, No rash, lesions, No ulcers Extremities: Left knee swollen and tender to touch, local ecchymosis. No digital cyanosis, No clubbing, Pedal pulses intact and symmetrical, Radial pulses intact and symmetrical, No calf tenderness Psychiatric: Alert and oriented to person, place and time, appropriate affect, intact judgement Neuro: Muscles Strength 5/5 in all 4 extremities, Sensation to light touch grossly present throughout, Cranial nerves II-XII grossly intact, no focal sensory deficits - Labs CBC & Chem 7: 09/07/17 06:34 09/07/17 06:34 Labs: Abnormal Lab Results - Last 24 Hours (Table) 09/06/17 09/06/17 09/06/17 Range/Units 17:14 17:14 17:14 RBC 4.17 L (4.30-5.90) m/uL Hgb 12.6 L (13.0-17.5) gm/dL Hct 38.5 L (39.0-53.0) % PT 30.2 H (9.0-12.0) sec INR 3.4 H (<1.2) APTT 34.7 H (22.0-30.0) sec Urine Protein Trace H (Negative) Urine Ketones 2+ H (Negative) Urine Blood Small H (Negative) Urine Bacteria Rare H (None) /hpf Hyaline Casts 3 H (0-2) /lpf Urine Mucus Many H (None) /hpf 09/07/17 09/07/17 Range/Units 06:34 06:34 RBC 3.82 L (4.30-5.90) m/uL Hgb 11.5 L (13.0-17.5) gm/dL Hct 35.6 L (39.0-53.0) % PT 38.6 H (9.0-12.0) sec INR 4.3 H (<1.2) APTT (22.0-30.0) sec Urine Protein (Negative) Urine Ketones (Negative) Urine Blood (Negative) Urine Bacteria (None) /hpf Hyaline Casts (0-2) /lpf Urine Mucus (None) /hpf Assessment and Plan Plan: Left knee swelling and pain/Hemarthrosis: S/P left knee arthrocentesis History of atrial fibrillation/status post mechanical mitral valve replacement: Consult cardiology Holding Coumadin, INR this am is 4.3, recheck in am. Resume Cardizem and metoprolol Hyperlipidemia Continue statin DVT prophylaxis Already on coumadin, INR therapeutic
[2017-09-07] MEDS ORDERED: METOPROLOL SUCCINATE (ER) 50 MG TAB.ER.24H PO SCH (17:00)
[2017-09-07] MEDS ORDERED: DILTIAZEM CD 120 MG CAP.ER.24H PO SCH (17:00)
[2017-09-07] MEDS ORDERED: METOPROLOL SUCCINATE (ER) 25 MG TAB.ER.24H PO STA (18:42)
--- NOTE | 2017-09-07 18:45 | P.CRDCN ---
History of Present Illness Consult date: 09/07/17 History of present illness: This is a 66-year-old gentleman with history of mitral valve replacement about 18 years ago for mitral valve regurgitation. Its possible that patient most probably had mitral valve prolapse and mitral regurgitation. Patient has been followed regularly. Hasn't had any chest pain, shortness of breath or dizziness. Patient was admitted not with hemarthrosis of the knee following a fall. Patient had some aspiration and today. Patient is advised conservative management and medical therapy. We're asked to see the patient because of history of mitral valve replacement and for management of INR. Patient claims that his INR is about 3.5 normally. He takes 7.5 mg of Coumadin daily. Today' s INR was about 4.5. No Coumadin was given today. Patient denies any chest pain, shortness of breath or dizziness. His heart rate is slightly high in the range of 90 to 100. I am going to increase the dose of metoprolol to 50 mg by mouth twice a day. Rest of the medication be continued. Possible discharge in a.m. His lungs are clear Past Medical History Past Medical History: Hyperlipidemia, Hypertension Additional Past Medical History / Comment(s): Atrial fibrillation History of Any Multi-Drug Resistant Organisms: None Reported Past Surgical History: Bowel Resection, Cardiac Valve Replacement, Hernia Repair Additional Past Surgical History / Comment(s): vasectomy, mechanical mitral valve Past Psychological History: No Psychological Hx Reported Smoking Status: Never smoker Past Alcohol Use History: None Reported Past Drug Use History: None Reported - Past Family History Father Family Medical History: No Reported History Mother Family Medical History: No Reported History Medications and Allergies Home Medications Medication Instructions Recorded Confirmed Type Diltiazem HCl 120 mg PO DAILY@1700 09/01/17 09/06/17 History Metoprolol Succinate [Toprol Xl] 50 mg PO DAILY@1700 09/01/17 09/06/17 History Multivitamin [Men's Multi-Vitamin] 1 tab PO DAILY 09/01/17 09/06/17 History Rosuvastatin [Crestor] 20 mg PO DAILY 09/01/17 09/06/17 History Warfarin [Coumadin] 7.5 mg PO DAILY 09/01/17 09/06/17 History Acetaminophen Tab [Tylenol Tab] 1,000 mg PO Q6HR PRN 09/06/17 09/06/17 History Allergies Allergy/AdvReac Type Severity Reaction Status Date / Time No Known Allergies Allergy Verified 09/06/17 17:20 Physical Exam Vitals: Vital Signs Temp Pulse Pulse Resp BP BP Pulse Ox 09/07/17 15:00 98.8 F 93 16 138/75 94 L 09/07/17 07:24 98.6 F 94 16 133/94 96 09/07/17 06:12 98.1 F 98 16 150/90 97 09/06/17 23:13 98.8 F 83 16 139/86 96 09/06/17 20:55 99.5 F 88 18 142/93 95 09/06/17 19:52 100 16 144/85 97 Intake and Output 09/07/17 09/07/17 09/07/17 06:59 14:59 22:59 Intake Total 650 Balance 650 Intake: Intake, IV Titration 650 Amount Sodium Chloride 0.9% 1, 650 000 ml @ 100 mls/hr IV . Q10H ELISABETH Rx#:[id number] Other: # Voids 1 GENERAL EXAM: Patient is alert and oriented and doesn't appear to be in any acute distress HEENT: Normocephalic. Normal reaction of pupils, equal size, normal range of extraocular motion. No erythema or exudates in the throat. NECK: No masses, no nuchal rigidity. CHEST: No chest wall deformity. LUNGS: Equal air entry with no crackles or wheeze. HEART: Mechanical heart sounds heard ABDOMEN: No hepatosplenomegaly, normal bowel sounds, no guarding or rigidity. SKIN: No rashes CENTRAL NERVOUS SYSTEM: No focal deficits. EXTREMITIES: No cyanosis, clubbing or edema. Results 09/07/17 06:34 09/07/17 06:34 Coagulation 09/07/17 Range/Units 06:34 PT 38.6 H (9.0-12.0) sec CBC 09/07/17 Range/Units 06:34 WBC 6.0 (3.8-10.6) k/uL RBC 3.82 L (4.30-5.90) m/uL Hgb 11.5 L (13.0-17.5) gm/dL Hct 35.6 L (39.0-53.0) % Plt Count 181 (150-450) k/uL Comprehensive Metabolic Panel 09/07/17 Range/Units 06:34 Sodium 140 (137-145) mmol/L Potassium 4.3 (3.5-5.1) mmol/L Chloride 105 (98-107) mmol/L Carbon Dioxide 28 (22-30) mmol/L BUN 12 (9-20) mg/dL Creatinine 0.68 (0.66-1.25) mg/dL Glucose 93 (74-99) mg/dL Calcium 8.8 (8.4-10.2) mg/dL Current Medications Generic Name Dose Route Start Last Admin Trade Name Freq PRN Reason Stop Dose Admin Acetaminophen 1,000 mg 09/06/17 17:42 Tylenol Tab PO Q6HR PRN Pain or Fever > 100.5 Hydrocodone Bitart/Acetaminophen 1 each 09/06/17 17:10 09/07/17 04:34 [place] 5-325 PO 1 each Q4HR PRN Administration Moderate Pain Atorvastatin Calcium 40 mg 09/07/17 09:00 09/07/17 07:43 Lipitor PO 40 mg DAILY ELISABETH Administration Diltiazem HCl 120 mg 09/07/17 17:00 09/07/17 15:53 Cardizem Cd PO 120 mg DAILY@1700 ELISABETH Administration Sodium Chloride 1,000 mls @ 100 mls/hr 09/06/17 17:15 09/07/17 17:31 Saline 0.9% IV 100 mls/hr .Q10H ELISABETH Administration Ibuprofen 400 mg 09/06/17 17:10 Motrin PO Q6HR PRN Mild Pain or Fever > 100.5 Metoprolol Succinate 50 mg 09/07/17 17:00 09/07/17 17:26 Toprol Xl PO 50 mg DAILY@1700 ELISABETH Administration Morphine Sulfate 4 mg 09/06/17 17:10 Morphine Sulfate (Inj) IV Q4HR PRN Severe Pain Multivitamins 1 each 09/07/17 12:00 09/07/17 15:51 Theragran PO 1 each 1200 ELISABETH Administration Naloxone HCl 0.2 mg 09/06/17 17:41 Narcan IV Q2M PRN Opioid Reversal Ondansetron HCl 4 mg 09/06/17 17:10 Zofran IVP Q8HR PRN Nausea And Vomiting Pantoprazole Sodium 40 mg 09/08/17 07:30 Protonix PO AC-BRKFST ELISABETH Intake and Output 07/0209/07/17 09/07/17 06:59 14:59 22:59 Intake Total 650 Balance 650 Intake: Intake, IV Titration 650 Amount Sodium Chloride 0.9% 1, 650 000 ml @ 100 mls/hr IV . Q10H ELISABETH Rx#:[id number] Other: # Voids 1 09/07/17 06:34 09/07/17 06:34 Assessment and Plan (1) Chronic atrial fibrillation Current Visit: Yes Status: Acute Code(s): I48.2 - CHRONIC ATRIAL FIBRILLATION SNOMED Code(s): 417876919 (2) Hemarthrosis Current Visit: Yes Status: Acute Code(s): M25.00 - HEMARTHROSIS, UNSPECIFIED JOINT SNOMED Code(s): 86385650 (3) Mechanical heart valve present Current Visit: Yes Status: Acute Code(s): Z95.2 - PRESENCE OF PROSTHETIC HEART VALVE SNOMED Code(s): 47376747206167 Plan: Hold Coumadin for today. PT/INR tomorrow. Get an EKG. Further recommendations depend upon clinical course. We'll resume his metoprolol and Cardizem. I will increase the dose of the metoprolol to 75 mg.
[2017-09-08 00:45] VITALS: RESP 18
[2017-09-08 07:23] LABS: Basophils % (A) 0 %; Eosinophils # (A) 0.1 k/uL (0-0.7); Eosinophils % (A) 1 %; HCT 36.6 % (39.0-53.0); HGB 11.7 gm/dL (13.0-17.5); Lymphocytes % (A) 20 %; MCH 29.9 pg (25.0-35.0); MCV 93.6 fL (80.0-100.0); Mean Platelet Volume 8.1; Monocytes # (A) 0.4 k/uL (0-1.0); Monocytes % (A) 8 %; Neutrophils # (A) 3.5 k/uL (1.3-7.7); Neutrophils % (A) 68 %; Platelet Count 197 k/uL (150-450); RBC 3.91 m/uL (4.30-5.90); RDW 13.9 % (11.5-15.5); WBC 5.2 k/uL (3.8-10.6)
[2017-09-08 07:28] LABS: INR 3.1 (<1.2); Prothrombin Time 27.7 sec (9.0-12.0)
[2017-09-08] MEDS ORDERED: PANTOPRAZOLE 40 MG TABLET PO SCH (07:30)
[2017-09-08 07:50] VITALS: BP 143/83; PULSE 81; TEMP 98.6
[2017-09-08] MEDS: ATORVASTATIN 40 MG TAB PO SCH (08:13)
[2017-09-08 08:18] LABS: Anion Gap 7 mmol/L; Blood Urea Nitrogen 10 mg/dL (9-20); Calcium 9.1 mg/dL (8.4-10.2); Carbon Dioxide 28 mmol/L (22-30); Chloride 105 mmol/L (98-107); Glucose 96 mg/dL (74-99); Potassium 4.4 mmol/L (3.5-5.1); Sodium 140 mmol/L (137-145)
--- NOTE | 2017-09-08 10:13 | P.DS ---
Providers Date of admission: 09/06/17 17:11 Expected date of discharge: 09/08/17 Attending physician: Lizeth Calles MD Consults: 09/06/17 17:10 Consult Physician Stat Consulting Provider: Alex Subramanian Consult Reason/Comments: L tibial plateau fracture, hemarthrosis Do you want consulting provider notified?: Yes Consult Physician Stat Consulting Provider: Ping Alarcon Consult Reason/Comments: Mechanical heart valve, Knee pain, coumadin mgmt Do you want consulting provider notified?: Yes Primary care physician: Maren Murguia Hospital Course: 66-year-old male presented emergency department twice over the last several days because of increased left knee pain and swelling after a fall. He had a mechanical fall while he was trying to go upstairs. He landed on his left foot while his left knee was twisted. Since the fall he was having a lot of pain in the left knee. He was seen and evaluated 3 days prior to admission in the emergency department with left knee x-rays and that was negative for any acute fracture. He was placed in knee immobilizer. Left knee has also been getting more and more swollen and the bruising over it is becoming more extensive. He was supposed to see maine Mendez for that but because the symptoms have been gradually becoming progressive and intolerable he came in to the ER. Patient is on Coumadin, for mechanical heart valve. He reports that he has no other symptoms including chest pain, shortness of breath, dizziness, palpitations, nausea or vomiting, fevers or chills. Patient had a computed tomography scan of his left knee and that showed evidence of tibial plateau fracture as well as significant hemarthrosis. He was admitted to the hospital for further evaluation and management. Upon admission and was evaluated by orthopedic surgery who did an arthrocentesis of the left knee and 30 ml of bloody seroanguinous fluid was taken out from the knee. The Coumadin was held for a couple of days because of INR and bleeding in the left knee. On the day of discharge it normalized, he will be resumed on Coumadin. Orthopedic service recommended no further surgical intervention on the left knee. Patient will be prescribed physical therapy as well as pain medications. He will be discharged home in stable condition. Plan - Discharge Summary Discharge Rx Participant: Yes New Discharge Prescriptions: New Ibuprofen [Motrin] 400 mg PO Q6HR PRN tab PRN Reason: Mild Pain Or Fever > 100.5 Continue Metoprolol Succinate [Toprol Xl] 50 mg PO DAILY@1700 Warfarin [Coumadin] 7.5 mg PO DAILY Rosuvastatin [Crestor] 20 mg PO DAILY Diltiazem HCl 120 mg PO DAILY@1700 Multivitamin [Men's Multi-Vitamin] 1 tab PO DAILY Acetaminophen Tab [Tylenol] 1,000 mg PO Q6HR PRN PRN Reason: Pain Or Fever > 100.5 Discharge Medication List Diltiazem HCl 120 mg PO DAILY@1700 09/01/17 [History] Metoprolol Succinate [Toprol Xl] 50 mg PO DAILY@1700 09/01/17 [History] Multivitamin [Men's Multi-Vitamin] 1 tab PO DAILY 09/01/17 [History] Rosuvastatin [Crestor] 20 mg PO DAILY 09/01/17 [History] Warfarin [Coumadin] 7.5 mg PO DAILY 09/01/17 [History] Acetaminophen Tab [Tylenol] 1,000 mg PO Q6HR PRN 09/06/17 [History] Ibuprofen [Motrin] 400 mg PO Q6HR PRN tab 09/08/17 [Rx] Follow up Appointment(s)/Referral(s): Maren Murguia DO [Primary Care Provider] - 1-2 days Alex Subramanian MD [STAFF PHYSICIAN] - 1 Week Activity/Diet/Wound Care/Special Instructions: Orthopedic discharge instructions: Utilize knee immobilizer Utilize crutches when ambulating Okay to remove knee immobilizer when stationary, keep leg in extension Icing and elevating often [facility] 1 week for recheck
[2017-09-08] MEDS ORDERED: WARFARIN 7.5 MG TAB PO SCH (18:00)
== END 2017-09-08 12:03 | disposition home or self-care (01) | DRG 563 ==
LOC: EC 14:48 → 5MS5E 17:11 → 3SUR 09-07 09:26
PROVIDERS: ADMIT Internal Medicine; ATTEND Internal Medicine
PROC: 0S9B3ZX Drainage of Left Hip Joint, Percutaneous Approach, Diagnostic (ICD-10-PCS; principal; 2017-09-06)
DX: S82.142A Displaced bicondylar fracture of left tibia, initial encounter for closed fracture (principal); M25.062 Hemarthrosis, left knee; E78.5 Hyperlipidemia, unspecified; I10 Essential (primary) hypertension; I05.2 Rheumatic mitral stenosis with insufficiency; I48.2 Chronic atrial fibrillation; S80.10XA Contusion of unspecified lower leg, initial encounter; W10.9XXA Fall (on) (from) unspecified stairs and steps, initial encounter; X50.1XXA Overexertion from prolonged static or awkward postures, initial encounter; Y92.009 Unspecified place in unspecified non-institutional (private) residence as the place of occurrence of the external cause; Z79.01 Long term (current) use of anticoagulants; Z95.2 Presence of prosthetic heart valve; Z79.899 Other long term (current) drug therapy
CPT/HCPCS: 36415; 80048; 80053; 81001; 83735; 84100; 85025; 85610; 85730; 93005; 99285

== ENCOUNTER 2017-11-27 08:23 | Day surgery (SDC) | payer MEDICARE ==
[2017-11-20 13:35] VITALS: BMI 25.4
--- NOTE | 2017-11-26 12:30 | HP ---
HISTORY AND PHYSICAL CHIEF COMPLAINT: Left knee pain. 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 He notes he has been wearing a brace, but continues to have medial pain along with stiffness and giving way. He denies previous problems prior to this injury. He is significantly limited because of pain. PAST MEDICAL HISTORY: Significant for hypertension, atrial fibrillation, and heart disease. PAST SURGICAL HISTORY: Significant for partial bowel resection, cardiac valve replacement, and hernia repair. CURRENT MEDICATIONS: 1. Coumadin. 2. Metoprolol. 3. Diltiazem. He denies drug allergies. FAMILY HISTORY: Significant for cancer, heart disease. SOCIAL HISTORY: Negative for current tobacco or alcohol use. REVIEW OF SYSTEMS: A 16-point review of systems is otherwise reviewed and is noncontributory. PHYSICAL EXAMINATION: On examination, the patient is approximately 5 foot 9, 175 pounds of mesomorphic habitus. HEENT exam is nonfocal. Neck is supple. He has painless passive motion of his left hip. Straight leg raise is negative. Active motion of left knee -8 to 80 degrees of flexion. He has a moderate effusion. Tender medial joint line. Collaterals are stable, Vanessa is 2+, Reji's elicits medial pain. His distal neurovascular appears intact in the left lower extremity. IMPRESSION: 1. Left knee MCL sprain. 2. Left knee internal derangement with symptomatic medial meniscal tear. 3. History of atrial fibrillation. RECOMMENDATION: I talked to the patient at length regarding his condition and treatment options. At this point, he is having persistent pain and mechanical symptoms despite conservative measures. After thorough discussion, he opts to proceed with surgery. We will plan to proceed with arthroscopic evaluation with probable partial medial meniscectomy. We will likely return him on his Coumadin directly after the procedure. Risks and benefits were discussed at length in layman's terms. MMODL / IJN: [id number] /
[~2017-11-27 08:23] MED LIST: DEXAMETHASONE SOD PHOSPHATE 10 MG/ML 1 ML VIAL IV ONE; LACTATED RINGERS 1,000 ML IV SCH; MIDAZOLAM 2 MG/2 ML VIAL IV PRN; ONDANSETRON 4 MG/2 ML VIAL IVP ONE; ceFAZolin IN SWFI 2 GM/20 ML SYRINGE IVP ONE; fentaNYL (PF) 50 MCG/ML 2 ML AMP IV PRN
[2017-11-27] MEDS ORDERED: LIDOCAINE 1% 20 ML VIAL (10MG/ML) FOR IV START INTRADERMA ONE (09:08)
[2017-11-27 09:15] LABS: INR 1.7 (<1.2)
[2017-11-27] MEDS ORDERED: fentaNYL (PF) 50 MCG/ML 2 ML AMP ONE (10:16)
[2017-11-27] MEDS ORDERED: MIDAZOLAM 2 MG/2 ML VIAL ONE (10:16)
[2017-11-27] MEDS ORDERED: LIDOCAINE 1% INJ 10MG/ML (20 ML MDV) ONE (10:16)
[2017-11-27] MEDS ORDERED: KETOROLAC 30 MG/ML 1 ML VIAL ONE (10:16)
[2017-11-27] MEDS ORDERED: PROPOFOL 10 MG/ML 20 ML VIAL IV ONE (10:16)
--- NOTE | 2017-11-27 11:10 | P.OP ---
Date of Procedure: 11/27/17 Preoperative Diagnosis: Left knee internal derangement Postoperative Diagnosis: Left knee posterior medial meniscal tear/middle one third lateral meniscal tear/ reactive synovitis medial, lateral, and patellofemoral compartments Procedure(s) Performed: Left knee arthroscopic partial medial meniscectomy/partial lateral meniscectomy/ partial synovectomy of the medial, lateral, and patellofemoral compartments Anesthesia: NAELA Surgeon: Alex Subramanian Estimated Blood Loss (ml): 10 Pathology: none sent Condition: stable Disposition: PACU Indications for Procedure: The patient's a 67-year-old male who presents with progressive left knee pain and mechanical symptoms despite conservative measures. A discussion of the risks and benefits of operative intervention versus continued conservative measures was made with patient. He opted to proceed with surgery. Operative risks to include infection, neurovascular injury, development of blood clots, possible incomplete resolution of symptoms, possible worsening symptoms and need for subsequent procedures was discussed. Informed consent was obtained. Operative Findings: As below Description of Procedure: The patient was brought to the operating room, and after induction of general anesthesia examined the left knee. He had mild valgus laxity at 0 and 30 of flexion. Vanessa was 2+. The left lower extremity was prepped and draped in a normal fashion. A superior lateral portal was made through a 3 mm skin incision superior and lateral to the patella. This was used for outflow. A moderate effusion was encountered. A lateral portal was made through a 5 mm vertical skin incision lateral to the patella tendon above the joint. Diagnostic arthroscopy was performed. A medial portal was made through a similar incision medial to the patella tendon above the joint line. On inspection the medial compartment, he is noted have a complex tear involving the posterior horn medial meniscus in the white-red junction. This was not amenable to repair. This was debrided back to stable base with straight baskets and a motorized shaver. The edges were contoured. Reactive synovitis from the anteromedial, anterolateral, and patellofemoral articulation was debrided with a motorized shaver. On inspection lateral compartment, a radial tear involving the middle one third a lateral meniscus white-white junction was noted. This debrided back to stable base with straight baskets and a motorized shaver. On inspection of the notch, the anterior cruciate ligament appeared to be ruptured off the lateral wall likely chronically. On inspection patellofemoral articulation, there is grade 2/3 chondral changes however no loose chondral fragments. The gutters were clear debris. The knee was thoroughly irrigated. The portals were closed with Steri-Strips. A sterile dressing was applied in addition to a compression stocking. The patient was awoken from general anesthesia and transferred to recovery room in good condition. Blood loss was estimated at 10 mL. No complications were incurred.
[2017-11-27 11:17] VITALS: TEMP 97.4
[2017-11-27 11:53] VITALS: RESP 16
[2017-11-27 12:26] VITALS: BP 144/78; PULSE 88
== END 2017-11-27 13:09 | disposition home or self-care (01) ==
LOC: OR 08:23
PROVIDERS: ATTEND Orthopaedic Surgery
DX: S83.242A Other tear of medial meniscus, current injury, left knee, initial encounter (principal); S83.282A Other tear of lateral meniscus, current injury, left knee, initial encounter; X58.XXXA Exposure to other specified factors, initial encounter; M65.862 Other synovitis and tenosynovitis, left lower leg; I10 Essential (primary) hypertension; I48.91 Unspecified atrial fibrillation; I51.9 Heart disease, unspecified; Z95.2 Presence of prosthetic heart valve; Z79.01 Long term (current) use of anticoagulants; Z79.899 Other long term (current) drug therapy
CPT/HCPCS: 84132; 85610; 29880; J2250; J1100; J2405; J2001; J3010; J1885; J2704; J0690

== ENCOUNTER → 2017-12-11 | Outpatient (CLI) | payer MEDICARE ==
[2017-12-11 15:19] LABS: Basophils # (A) 0.1 k/uL (0-0.2); Basophils % (A) 1 %; Eosinophils % (A) 1 %; HCT 42.7 % (39.0-53.0); HGB 13.8 gm/dL (13.0-17.5); Lymphocytes # (A) 1.2 k/uL (1.0-4.8); Lymphocytes % (A) 26 %; MCH 30.4 pg (25.0-35.0); MCHC 32.2 g/dL (31.0-37.0); MCV 94.5 fL (80.0-100.0); Mean Platelet Volume 8.2; Monocytes # (A) 0.3 k/uL (0-1.0); Monocytes % (A) 7 %; Neutrophils # (A) 2.8 k/uL (1.3-7.7); Neutrophils % (A) 62 %; Platelet Count 175 k/uL (150-450); RBC 4.52 m/uL (4.30-5.90); RDW 13.5 % (11.5-15.5); WBC 4.5 k/uL (3.8-10.6)
== END | disposition home or self-care (01) ==
LOC: LABWHC1 12:51
PROVIDERS: ATTEND Internal Medicine
DX: D47.3 Essential (hemorrhagic) thrombocythemia (principal)
CPT/HCPCS: 36415; 85025

== ENCOUNTER → 2018-03-22 | Outpatient (CLI) | payer MEDICARE ==
[2018-03-22 15:29] LABS: Basophils % (A) 1 %; Eosinophils # (A) 0.1 k/uL (0-0.7); Eosinophils % (A) 2 %; HCT 43.2 % (39.0-53.0); HGB 13.2 gm/dL (13.0-17.5); Lymphocytes # (A) 1.3 k/uL (1.0-4.8); Lymphocytes % (A) 25 %; MCH 29.2 pg (25.0-35.0); MCHC 30.7 g/dL (31.0-37.0); MCV 95.1 fL (80.0-100.0); Mean Platelet Volume 7.8; Monocytes # (A) 0.5 k/uL (0-1.0); Monocytes % (A) 9 %; Neutrophils # (A) 3.2 k/uL (1.3-7.7); Neutrophils % (A) 61 %; Platelet Count 197 k/uL (150-450); RBC 4.54 m/uL (4.30-5.90); RDW 13.9 % (11.5-15.5); WBC 5.3 k/uL (3.8-10.6)
== END ==
LOC: LABWHC1 14:43
PROVIDERS: ATTEND Internal Medicine
DX: D47.3 Essential (hemorrhagic) thrombocythemia (principal); Z12.5 Encounter for screening for malignant neoplasm of prostate
CPT/HCPCS: 85025; 36415; G0103

== ENCOUNTER → 2019-01-28 | Outpatient (CLI) | payer MEDICARE ==
[2019-01-28 09:37] LABS: Basophils # (A) 0.1 k/uL (0-0.2); Basophils % (A) 2 %; Eosinophils # (A) 0.1 k/uL (0-0.7); Eosinophils % (A) 1 %; HCT 42.4 % (39.0-53.0); HGB 13.7 gm/dL (13.0-17.5); Lymphocytes % (A) 25 %; MCH 30.7 pg (25.0-35.0); MCHC 32.3 g/dL (31.0-37.0); MCV 94.9 fL (80.0-100.0); Mean Platelet Volume 8.5; Monocytes # (A) 0.3 k/uL (0-1.0); Monocytes % (A) 7 %; Neutrophils # (A) 2.5 k/uL (1.3-7.7); Neutrophils % (A) 63 %; Platelet Count 179 k/uL (150-450); RBC 4.46 m/uL (4.30-5.90); RDW 13.4 % (11.5-15.5)
[2019-01-28 16:24] LABS: ALT 19 U/L (10-49); AST 37 U/L (14-35); African American GFR (CKD) 107.9 (60.0-200.0); Albumin/Globulin Ratio 2.05 (1.60-3.17); Alkaline Phosphatase 68 U/L (41-126); BUN/Creat Ratio 16.25 Ratio (12.00-20.00); Calcium 9.6 mg/dL (8.7-10.3); Chloride 107 mmol/L (96-109); Chol/HDL Ratio 2.55; Cholesterol 168 mg/dL (0-200); Globulin 2.1 g/dL (1.6-3.3); Glucose 100 mg/dL (70-110); Non-African American GFR(CKD) 93.1 (60.0-200.0); Potassium 4.2 mmol/L (3.5-5.5); Sodium 143 mmol/L (135-145); Total Bilirubin 0.9 mg/dL (0.2-1.2); Total Protein 6.4 g/dL (6.2-8.2); Triglycerides <50.0 mg/dL (0.0-149.0)
== END ==
LOC: LABWHC1 08:50
PROVIDERS: ATTEND Internal Medicine
DX: Z00.00 Encounter for general adult medical examination without abnormal findings (principal); E78.5 Hyperlipidemia, unspecified
CPT/HCPCS: 36415; 80053; 80061; 85025

== ENCOUNTER → 2019-03-07 | Outpatient (CLI) | payer MEDICARE ==
[2019-03-07 12:04] LABS: INR 4.5 (<1.2)
[2019-03-07 12:05] LABS: Prothrombin Time 43.7 sec (9.0-12.0)
[2019-03-07 12:27] LABS: Basophils % (A) 0 %; Eosinophils % (A) 0 %; HCT 40.9 % (39.0-53.0); HGB 13.1 gm/dL (13.0-17.5); Lymphocytes # (A) 0.3 k/uL (1.0-4.8); Lymphocytes % (A) 10 %; MCH 29.7 pg (25.0-35.0); MCV 92.7 fL (80.0-100.0); Mean Platelet Volume 9.4; Monocytes # (A) 0.3 k/uL (0-1.0); Monocytes % (A) 9 %; Neutrophils # (A) 2.7 k/uL (1.3-7.7); Neutrophils % (A) 80 %; Platelet Count 178 k/uL (150-450); RBC 4.41 m/uL (4.30-5.90); RDW 13.5 % (11.5-15.5); WBC 3.4 k/uL (3.8-10.6)
== END | disposition home or self-care (01) ==
LOC: LABWHC1 11:16
PROVIDERS: ATTEND Internal Medicine
DX: J18.9 Pneumonia, unspecified organism (principal)
CPT/HCPCS: 36415; 85025; 85610

== ENCOUNTER → 2019-03-18 | Outpatient (CLI) | payer MEDICARE ==
[2019-03-18 11:38] LABS: HCT 42.4 % (39.0-53.0); HGB 13.5 gm/dL (13.0-17.5); MCH 29.8 pg (25.0-35.0); MCHC 31.8 g/dL (31.0-37.0); MCV 93.7 fL (80.0-100.0); Mean Platelet Volume 9.3; Platelet Count 215 k/uL (150-450); RBC 4.52 m/uL (4.30-5.90); RDW 13.7 % (11.5-15.5); WBC 4.8 k/uL (3.8-10.6)
[2019-03-18 12:18] LABS: INR 8.3 (<1.2); Prothrombin Time 81.7 sec (9.0-12.0)
== END | disposition home or self-care (01) ==
LOC: LABWHC1 10:55
PROVIDERS: ATTEND Internal Medicine
DX: D72.819 Decreased white blood cell count, unspecified (principal)
CPT/HCPCS: 36415; 85027; 85610

== ENCOUNTER → 2020-03-28 | Outpatient (CLI) | payer MEDICARE ==
--- NOTE | 2020-03-28 13:41 | CT ---
EXAMINATION TYPE: CT brain wo con DATE OF EXAM: 03/28/2020 HISTORY: Headache CT DLP: 995.50 mGycm. Automated Exposure Control for Dose Reduction was Utilized. TECHNIQUE: CT scan of the head is performed without contrast. COMPARISON: None. FINDINGS: There is no acute intracranial hemorrhage or midline shift identified. There is diffuse v entricular and sulcal prominence consistent with diffuse age-related cerebral atrophy. There is low- attenuation in the periventricular white matter consistent with chronic small vessel ischemic change. The globes are intact and the visualized sinuses are clear. IMPRESSION: No acute intracranial hemorrhage or midline shift. There is mild to moderate diffuse ag e-related cerebral atrophy and chronic small vessel ischemic change noted.
[2020-03-28 14:01] LABS: Basophils # (A) 0.1 k/uL (0-0.2); Basophils % (A) 1 %; Eosinophils % (A) 1 %; HCT 47.5 % (39.0-53.0); HGB 15.5 gm/dL (13.0-17.5); Lymphocytes # (A) 1.2 k/uL (1.0-4.8); Lymphocytes % (A) 25 %; MCH 30.7 pg (25.0-35.0); MCHC 32.7 g/dL (31.0-37.0); Mean Platelet Volume 9.8; Monocytes # (A) 0.3 k/uL (0-1.0); Monocytes % (A) 6 %; Neutrophils # (A) 3.2 k/uL (1.3-7.7); Neutrophils % (A) 66 %; Platelet Count 181 k/uL (150-450); RBC 5.05 m/uL (4.30-5.90); RDW 13.5 % (11.5-15.5); WBC 4.8 k/uL (3.8-10.6)
[2020-03-28 14:11] LABS: ALT 21 U/L (4-49); AST 48 U/L (17-59); African American GFR (CKD) >90 (>60 ml/min/1.73 sqM); Albumin 4.6 g/dL (3.5-5.0); Alkaline Phosphatase 67 U/L (38-126); Anion Gap 4 mmol/L; Blood Urea Nitrogen 11 mg/dL (9-20); Calcium 9.9 mg/dL (8.4-10.2); Carbon Dioxide 33 mmol/L (22-30); Chloride 103 mmol/L (98-107); Cholesterol 188 mg/dL (<200); Glucose 162 mg/dL (74-99); HDL Cholesterol 72 mg/dL (40-60); LDL Cholesterol,Calculated 103 mg/dL (0-99); Non-African American GFR(CKD) >90 (>60 ml/min/1.73 sqM); Potassium 4.4 mmol/L (3.5-5.1); Sodium 140 mmol/L (137-145); Total Bilirubin 1.2 mg/dL (0.2-1.3); Total Protein 7.6 g/dL (6.3-8.2); Triglycerides 64 mg/dL (<150)
[2020-03-28 22:56] LABS: PSA Annual Screen 2.2 ng/mL (0.0-4.0)
== END | disposition home or self-care (01) ==
LOC: RADCTMAIN 13:02
PROVIDERS: ATTEND Internal Medicine
DX: I67.82 Cerebral ischemia (principal); G31.1 Senile degeneration of brain, not elsewhere classified; E55.9 Vitamin D deficiency, unspecified; E78.00 Pure hypercholesterolemia, unspecified; Z79.899 Other long term (current) drug therapy
CPT/HCPCS: 80061; 80053; 84443; 85025; 82306; 70450; G0103

== ENCOUNTER → 2020-04-05 | Outpatient (CLI) | payer MEDICARE ==
[2020-04-05 20:10] LABS: Hemoglobin A1C 5.6 % (4.0-6.0)
== END | disposition home or self-care (01) ==
LOC: LABWHC1 09:32
PROVIDERS: ATTEND Internal Medicine
DX: R73.09 Other abnormal glucose (principal)
CPT/HCPCS: 36415; 82947; 83036

== ENCOUNTER 2022-05-28 08:01 | Day surgery (SDC) | payer MEDICARE ==
[2022-05-23 13:08] VITALS: BMI 25.4
--- NOTE | 2022-05-27 14:05 | HP ---
HISTORY AND PHYSICAL DATE OF SURGERY: 05/28/2022. HISTORY OF PRESENT ILLNESS: Vikash Sharma is a 71-year-old gentleman seen with progressive left knee pain. We discussed options for treatment. He elected to proceed with left knee arthroscopy. Consent regarding the procedure was obtained. Preoperative cardiac clearance was provided. PAST MEDICAL HISTORY: Cardiovascular disease, hypertension, hyperlipidemia. PAST SURGICAL HISTORY: Bowel resection, herniorrhaphy, valve replacement, knee arthroscopy. DAILY MEDICATIONS: 1. Metoprolol. 2. Rosuvastatin. 3. Warfarin. 4. Lisinopril. 5. Tylenol. ALLERGIES: None. SOCIAL HISTORY: Denies tobacco use. PHYSICAL EVALUATION OF LEFT KNEE: His range of motion is -3/4 to 90 degrees. Moderate effusion. Tenderness along the medial and lateral joint line. Positive medial Reji's, positive lateral Reji's. Collateral ligaments are stable. +1 Vanessa/+2 Vanessa's, soft endpoint. Distal neurovascular exam is intact. RADIOGRAPHS: Left knee radiographs revealed no osseous abnormality. MRI of the left knee revealed ACL tear, diminutive meniscus and large effusion. IMPRESSION: 1. Internal derangement of left knee with ACL tear and medial meniscal tear. 2. Hypertension. 3. Hyperlipidemia. 4. Cardiovascular disease. PLAN: Left knee arthroscopy with partial medial meniscectomy and debridement ACL tear. MMODL / IJN: [id number] /
[2022-05-28] MEDS ORDERED: LACTATED RINGERS 1,000 ML IV ONE (08:32)
[2022-05-28] MEDS ORDERED: ONDANSETRON 4 MG/2 ML VIAL ONE (08:57)
[2022-05-28] MEDS ORDERED: DEXAMETHASONE SOD PHOSPHATE 4 MG/ML 1 ML VIAL IVP ONE (09:12)
[2022-05-28] MEDS ORDERED: ONDANSETRON 4 MG/2 ML VIAL IVP ONE (09:12)
[2022-05-28] MEDS ORDERED: PROPOFOL 10 MG/ML 20 ML VIAL IV ONE (11:01)
[2022-05-28] MEDS ORDERED: LIDOCAINE 2% INJ 20 MG/ML (2 ML VIAL) ONE (11:01)
[2022-05-28] MEDS ORDERED: PHENYLEPHRINE-0.9% NACL SYG 1,000 MCG/10 ML SYRINGE ONE (11:01)
[2022-05-28] MEDS ORDERED: ROPIVACAINE 5 MG/ML 30 ML VIAL ONE (11:01)
[2022-05-28] MEDS ORDERED: fentaNYL (PF) 50 MCG/ML 2 ML AMP ONE (11:01)
[2022-05-28] MEDS ORDERED: DEXAMETHASONE SOD PHOSPHATE 4 MG/ML 1 ML VIAL ONE (11:01)
[2022-05-28] MEDS ORDERED: BUPIVACAINE (PF) 0.25% 30 ML VIAL SQ ONE (11:02)
--- NOTE | 2022-05-28 11:07 | P.ANPRN ---
Procedure Note - Anesthesia - Nerve Block Performed Left Adductor Canal Single Time Out Performed: Yes Date of Procedure: 05/28/22 Procedure Start Time: : Procedure Stop Time: : Location of Patient: PreOp Indication: Acute Post-Operative Pain, Requested by Surgeon Sedation Type: Sedate with meaningful contact maintained Preparation: Sterile Prep, Sterile Dressing Position: Supine Catheter: None Needle Types: Facet Needle Gauge: 20 Ultrasound used to visualize needle placement: Yes Ultrasound used to observe medication spread: Yes Injectate: 0.5% Ropivacaine (see comment for volume) (20 ml + decadron 2 mg) Blood Aspirated: No Pain Paresthesia on Injection Noted: No Resistance on Injection: Normal Image Stored and Saved: Yes Events: Uneventful and Well Tolerated Left iPack Single Date of Procedure: 05/28/22 Procedure Start Time: : Procedure Stop Time: : Location of Patient: PreOp Indication: Acute Post-Operative Pain, Requested by Surgeon Sedation Type: Sedate with meaningful contact maintained Preparation: Sterile Prep, Sterile Dressing Position: Right Lateral Catheter: None Needle Types: Facet Needle Gauge: 20 Ultrasound used to visualize needle placement: Yes Ultrasound used to observe medication spread: Yes Injectate: 0.5% Ropivacaine (see comment for volume) (10 ml + decadron 2 mg) Blood Aspirated: No Pain Paresthesia on Injection Noted: No Resistance on Injection: Normal Image Stored and Saved: Yes Events: Uneventful and Well Tolerated
--- NOTE | 2022-05-28 11:45 | P.OP ---
Date of Procedure: 05/28/22 Preoperative Diagnosis: Internal derangement left knee Postoperative Diagnosis: 1. Tear medial and lateral meniscus left knee 2. Reactive synovitis medial, lateral and suprapatellar compartments left knee Procedure(s) Performed: 1. Arthroscopic partial medial and lateral meniscectomy left knee 2. Arthroscopic partial synovectomy medial, lateral and suprapatellar compartments left knee Anesthesia: GETA, regional (Adductor canal block) Surgeon: Ricrado oBlivar Estimated Blood Loss (ml): 8 Pathology: none sent Condition: stable Disposition: PACU Indications for Procedure: 71-year-old patient seen with progressive left knee pain. After treatment options were discussed, he elected to proceed with arthroscopy. Operative Findings: See description of procedure Description of Procedure: Patient was taken to the operative suite. Patient underwent a general anesthetic by the department of anesthesia. Patient was given preoperative antibiotics. The left lower extremity was placed in a well-padded arthroscopic leg marshall. The left leg was prepped and draped in the normal sterile orthopedic fashion. A lateral parapatellar and suprapatellar incision was made. Trochars were inserted. Arthroscopy was initiated. Suprapatellar pouch revealed diffuse thick reactive synovitis. The patellofemoral joint appeared to articulate congruently. There was grade 2 chondromalacia of the patella with no soaking osteochondral tears. The scope was guided into the medial gutter. No loose bodies or plica were identified. The scope was then guided into the medial compartment. A medial parapatellar incision was made. Trocar inserted followed by probe. There was a radial tear along the midbody area of the medial meniscus. There was evidence of previous partial meniscectomy. There were grade 2 chondromalacia changes along the medial femoral condyle without significant tears. There was rather thick reactive synovitis anteriorly. I performed a partial medial meniscectomy getting down to stable meniscal tissue. I performed a partial synovectomy decompressing the reactive synovitis. The residual meniscus was stable. There was good decompression of the synovitis. Scope and probe were then guided into the intercondylar notch. Cruciates were identified, probed and found to be stable. The scope and probe were then guided into lateral compartment. There was a tear along the posterior horn and midbody lateral meniscus. There were some grade 2, changes lateral compartment. There was some thick reactive synovitis anteriorly. I performed a partial lateral meniscectomy getting down to stable meniscal tissue. I performed a partial synovectomy decompressing the reactive synovitis. The residual meniscus was stable. There was good decompression of the synovitis. The scope was in guided back into the suprapatellar compartment. I introduced a motorized shaver into the suprapatellar compartment. I debrided some piecemeal fragments of meniscus that I encountered. I performed a partial synovectomy. Shaver was now removed. There was good decompression of the synovitis. I now took one more look on the entire knee, no residual debris. Instruments were now removed from the joint. The joint was infiltrated with .25% Marcaine. Steri-Strips were applied to the portal sites. Sterile dressings were applied. The patient was placed into a FERNIE hose. No tourniquet was utilized. The patient was awakened, transferred to a bed and taken to recovery stable satisfactory condition.
[2022-05-28 11:51] VITALS: TEMP 96.8
[2022-05-28 12:10] VITALS: RESP 16
[2022-05-28 13:23] VITALS: PULSE 89
[2022-05-28 13:32] VITALS: BP 140/96
== END 2022-05-28 13:39 | disposition home or self-care (01) ==
LOC: OR 08:01
PROVIDERS: ATTEND Orthopaedic Surgery
DX: S83.282A Other tear of lateral meniscus, current injury, left knee, initial encounter (principal); S83.242A Other tear of medial meniscus, current injury, left knee, initial encounter; G89.18 Other acute postprocedural pain; M65.9 Synovitis and tenosynovitis, unspecified; I11.9 Hypertensive heart disease without heart failure; E78.5 Hyperlipidemia, unspecified; I48.91 Unspecified atrial fibrillation; I25.10 Atherosclerotic heart disease of native coronary artery without angina pectoris; Z79.899 Other long term (current) drug therapy; X58.XXXA Exposure to other specified factors, initial encounter
CPT/HCPCS: 64447; 64999; 76942; 29880; J1100; J0690; J2405; J3010; J2795; J2370; J2704; J2001

== ENCOUNTER 2023-01-12 05:22 | Emergency (ER) | payer MEDICARE ==
[2023-01-12 05:32] VITALS: RESP 18; TEMP 97.8
[2023-01-12] MEDS ORDERED: ORPHENADRINE 30 MG/ML 2 ML VIAL IM STA (06:18)
--- NOTE | 2023-01-12 06:31 | ED ---
Extremity Problem HPI - General Chief complaint: Extremity Problem,Nontraumatic Stated complaint: Right Arm pain Time Seen by Provider: 01/12/23 05:52 Source: patient, RN notes reviewed Mode of arrival: ambulatory Limitations: no limitations - History of Present Illness Initial comments: This is a 72-year-old male who presents to the emergency department for right arm pain. States that about 2 weeks ago, he woke up with right arm pain and spasms. This resolved shortly afterwards, however today, he was woken up around 2 AM with severe pain and spasms in the right arm. This starts in the area of the elbow and radiates down towards the hand. States that movement of the arm in any direction induces the pain and he tends to try to keep it bent at 90 and close to his body. His largest concern is ruling out cardiac issues given his history of heart problems consisting of atrial fibrillation and mitral valve replacement. He is on Coumadin. Denies any chest pain or shortness of breath. Denies any injuries. MD Complaint: extremity pain - Related Data Home Medications Medication Instructions Recorded Confirmed Metoprolol Succinate [Toprol Xl] 50 mg PO BID 09/01/17 05/28/22 Warfarin [Coumadin] 7.5 mg PO MOWEFR 09/01/17 05/28/22 Multivitamins, Thera [Multivitamin 1 tab PO DAILY 11/20/17 05/28/22 (formulary)] Rosuvastatin Calcium 40 mg PO DAILY 05/23/22 05/28/22 Terazosin [Hytrin] 1 mg PO HS 05/23/22 05/28/22 Warfarin [Coumadin] 3.75 mg PO SUTUTHSA 05/23/22 05/28/22 lisinopriL [Zestril] 5 mg PO DAILY 05/23/22 05/28/22 Previous Rx's Medication Instructions Recorded HYDROcodone/APAP 5-325MG [[place] 1 tab PO Q6HR PRN #12 tab 05/28/22 5-325] Allergies Allergy/AdvReac Type Severity Reaction Status Date / Time No Known Allergies Allergy Verified 01/12/23 05:29 Review of Systems ROS Statement: Those systems with pertinent positive or pertinent negative responses have been documented in the HPI. ROS Other: All systems not noted in ROS Statement are negative. Past Medical History Past Medical History: Atrial Fibrillation, Hyperlipidemia, Hypertension Additional Past Medical History / Comment(s): A-FIB, HX OF MITRAL VALVE REPLACEMENT (MECHANICAL-1999), HX OF DIVERTICULITIS., History of Any Multi-Drug Resistant Organisms: None Reported Past Surgical History: Bowel Resection, Cardiac Valve Replacement, Hernia Repair, Orthopedic Surgery Additional Past Surgical History / Comment(s): vasectomy, mechanical mitral valve , bowel resection due to diverticulitis., LT KNEE SX, COLONOSCOPY Past Anesthesia/Blood Transfusion Reactions: Motion Sickness, Postoperative Nausea & Vomiting (PONV) Past Psychological History: No Psychological Hx Reported Smoking Status: Never smoker Past Alcohol Use History: None Reported Past Drug Use History: None Reported - Past Family History Father Family Medical History: Cancer Additional Family Medical History / Comment(s): lung cancer with brain mets. Mother Family Medical History: Cancer Additional Family Medical History / Comment(s): skin cancer Sister(s) Family Medical History: Cancer Additional Family Medical History / Comment(s): breast cancer General Exam Limitations: no limitations General appearance: alert, in no apparent distress Head exam: Present: atraumatic, normocephalic, normal inspection Respiratory exam: Present: normal lung sounds bilaterally. Absent: respiratory distress, wheezes, rales, rhonchi, stridor Cardiovascular Exam: Present: regular rate, normal rhythm, normal heart sounds. Absent: systolic murmur, diastolic murmur, rubs, gallop, clicks Extremities exam: Present: other (Swelling and tenderness over the right olecranon bursa. Range of motion induces pain. 2+ radial pulses. Capillary refill less than 1 second.) Neurological exam: Present: alert, oriented X3, CN II-XII intact Psychiatric exam: Present: normal affect, normal mood Skin exam: Present: warm, dry, intact, normal color. Absent: rash Course Vital Signs 01/12/23 01/12/23 05:26 08:09 Temperature 97.8 F Pulse Rate 96 78 Respiratory 18 18 Rate Blood Pressure 172/102 142/77 O2 Sat by Pulse 98 99 Oximetry Medical Decision Making - Medical Decision Making This is a 72-year-old male who presents to the emergency department for right arm pain. Was pt. sent in by a medical professional or institution? @ -No Did you speak to anyone other than the patient for history? @ -No Did you review nursing and triage notes? @ -Yes, and I agree, it is accurate with regards to the patient's symptoms. Were old charts reviewed? @ -No Differential Diagnosis? @ -Differential Musculoskeletal Muscular strain, contusion, ligament sprain, fracture, arthritis, septic arthritis, bursitis, cellulitis, muscle spasm, nerve compression, DVT, arterial occlusion, herpes zoster, electrolyte abnormality, tumor.... This is not meant to be in all inclusive list EKG interpreted by me (3pts min.)? @ -EKG interpreted by me demonstrating the following: Atrial fibrillation. Ventricular rate 81 beats per minute, QRS duration 118 ms, QTC 435 ms. X-rays interpreted by me (1pt min.)? @ -X-ray of the right elbow and forearm obtained. My interpretation identifies a joint effusion. CT interpreted by me (1pt min.)? @ -Not obtained U/S interpreted by me (1pt. min.)? @ -Not obtained What testing was considered but not performed? (CT, X-rays, U/S, labs)? Why? @ -None What meds were considered but not given? Why? @ -None Did you discuss the management of the patient with other professionals? @ -No Did you reconcile home meds? @ -No Was smoking cessation discussed for >3mins.? @ -No Was critical care preformed (if so, how long)? @ -No Were there social determinants of health that impacted care today? How? (Homelessness, low income, unemployed, alcoholism, drug addiction, trans portation, low edu. Level, literacy, decrease access to med. care, fdc, rehab)? @ -No Was there de-escalation of care discussed even if they declined? (Discuss DNR or withdrawal of care, Hospice)? @ -No What co-morbidities impacted this encounter? (DM, HTN, Smoking, COPD, CAD, Cancer, CVA, Hep., AIDS, mental health diagnosis, sleep apnea, morbid obesity)? @ -Atrial fibrillation, mitral valve replacement Was patient admitted / discharged? @ -Discharged. On physical examination the patient does have notable tenderness around the elbow and the pain was very reproducible with any movement. He did have an area of swelling near the elbow, and x-rays of the elbow and forearm were subsequently obtained. This revealed a joint effusion at the elbow. His symptoms are likely musculoskeletal in nature, especially given the x-ray findings and with how reproducible the pain is. Given that he is on Coumadin, advised he continue taking Tylenol as needed for pain relief. We did wrap the elbow with an Barney bandage for comfort. Patient is well established with [facility]. Discussed that he contact them if he would like for a follow-up appointment and reevaluation of ongoing symptoms. Patient otherwise discharged home in stable condition. Undiagnosed new problem with uncertain prognosis? @ -None Drug Therapy requiring intensive monitoring for toxicity (Heparin, Nitro, Insulin, Cardizem)? @ -None Were any procedures done? @ -None Diagnosis/symptom? @ -Joint effusion, right arm pain Acute, or Chronic, or Acute on Chronic? @ -Acute Uncomplicated (without systemic symptoms) or Complicated (systemic symptoms)? @ -Uncomplicated Side effects of treatment? @ -None Exacerbation, Progression, or Severe Exacerbation] @ -Not applicable Poses a threat to life or bodily function? @ -No Return precautions reviewed in depth, the patient is instructed to return to the emergency department with any new, worsening, or concerning symptoms. Patient verbalized understanding. This case was discussed in detail with the attending ED physician, Dr. Schneider. Presentation, findings, and treatment plan discussed in detail as well. - Radiology Data Radiology results: report reviewed, image reviewed Disposition Clinical Impression: Elbow joint effusion, Right arm pain Disposition: HOME SELF-CARE Instructions (If sedation given, give patient instructions): Swollen Joint (ED), Arm Pain (ED) Additional Instructions: Return to the emergency department with any new, worsening, or concerning symptoms. Take Tylenol as needed for pain relief. Contact orthopedics for a follow-up appointment and further evaluation of ongoing symptoms. Follow up with your primary care provider in 1-2 days. Is patient prescribed a controlled substance at d/c from ED?: No Referrals: Delia Puga MD [Primary Care Provider] - 1-2 days Ricardo Bolivar DO [Doctor of Osteopathic Medicine] - 1-2 days
--- NOTE | 2023-01-12 07:12 | XR ---
EXAMINATION TYPE: XR forearm RT DATE OF EXAM: 01/12/2023 COMPARISON: None HISTORY: Pain, swelling TECHNIQUE: 2 views right forearm FINDINGS: No acute fractures are evident. Some degenerative changes noted at the distal forearm carpa l junction. Vascular calcification is noted. Follow up exams can be performed as clinically indicated IMPRESSION: 1. Degenerative joint changes. 2. No acute osseous abnormality radiographically apparent.
--- NOTE | 2023-01-12 07:15 | XR ---
EXAMINATION TYPE: XR elbow complete RT DATE OF EXAM: 01/12/2023 COMPARISON: None HISTORY: Pain and swelling TECHNIQUE: 3 view right elbow FINDINGS: Radius aligns normally humerus. There is narrowing of the humeral ulnar joint space. Spurri ng is present from the ulna and the humeral head. Anterior fat pad may have some prominence. There is some mild elevation of posterior fat pad. Finding s can be compatible with a joint effusion. Occult fracture is not excluded but not identified on the current examination. IMPRESSION: 1. There appears to be a joint effusion at the elbow. Occult fracture could be considered among othe r etiologies. Follow-up can be performed as clinically indicated. 2. An acute osseous abnormality is not sonographically apparent at this time. Degenerative changes ar e noted at the elbow.
[2023-01-12] MEDS ORDERED: DEXAMETHASONE SOD PHOSPHATE 10 MG/ML 1 ML VIAL IM STA (07:49)
[2023-01-12] MEDS ORDERED: ACET/COD 300 MG/30 MG STARTER PACK 6 TAB BTL PO STA (07:49)
[2023-01-12 08:13] VITALS: BP 142/77; PULSE 78
== END 2023-01-12 08:10 | disposition home or self-care (01) ==
LOC: EC 05:22
DX: M25.421 Effusion, right elbow (principal); I48.91 Unspecified atrial fibrillation; E78.5 Hyperlipidemia, unspecified; I10 Essential (primary) hypertension; Z79.01 Long term (current) use of anticoagulants; Z79.899 Other long term (current) drug therapy
CPT/HCPCS: 73080; 73090; 99283; 96372 ×2; J1100; J2360

== ENCOUNTER 2024-09-10 10:07 | Emergency (ER) | payer MEDICARE ==
--- NOTE | 2024-09-10 12:13 | ED ---
General Adult HPI - General Chief complaint: Abdominal Pain Stated complaint: Left side groin pain Time Seen by Provider: 09/10/24 12:00 Source: patient, RN notes reviewed, old records reviewed Mode of arrival: ambulatory Limitations: no limitations - History of Present Illness Initial comments: This is a 73-year-old male who presents to the emergency department complaining of little bulge in the left lower side of his abdomen. Patient states when he stands up all day it gets worse when he lays down he can even feel it. Patient states there is no significant pain. Patient Nuys any nausea vomiting. Patient has any diarrhea. Patient states having normal bowel movements. Patient denies any recent fever or chills. - Related Data Home Medications Medication Instructions Recorded Confirmed Metoprolol Succinate [Toprol Xl] 50 mg PO BID 09/01/17 05/28/22 Warfarin [Coumadin] 7.5 mg PO MOWEFR 09/01/17 05/28/22 Multivitamins, Thera [Multivitamin 1 tab PO DAILY 11/20/17 05/28/22 (formulary)] Rosuvastatin Calcium 40 mg PO DAILY 05/23/22 05/28/22 Terazosin [Hytrin] 1 mg PO HS 05/23/22 05/28/22 Warfarin [Coumadin] 3.75 mg PO SUTUTHSA 05/23/22 05/28/22 lisinopriL [Zestril] 5 mg PO DAILY 05/23/22 05/28/22 Previous Rx's Medication Instructions Recorded HYDROcodone/APAP 5-325MG [[place] 1 tab PO Q6HR PRN #12 tab 05/28/22 5-325] Allergies Allergy/AdvReac Type Severity Reaction Status Date / Time No Known Allergies Allergy Verified 09/10/24 10:16 Review of Systems ROS Statement: Those systems with pertinent positive or pertinent negative responses have been documented in the HPI. ROS Other: All systems not noted in ROS Statement are negative. Past Medical History Past Medical History: Atrial Fibrillation, Hyperlipidemia, Hypertension Additional Past Medical History / Comment(s): A-FIB, HX OF MITRAL VALVE REPLACEMENT (MECHANICAL-1999), HX OF DIVERTICULITIS., History of Any Multi-Drug Resistant Organisms: None Reported Past Surgical History: Bowel Resection, Cardiac Valve Replacement, Hernia Repair, Orthopedic Surgery Additional Past Surgical History / Comment(s): vasectomy, mechanical mitral valve , bowel resection due to diverticulitis., LT KNEE SX, COLONOSCOPY Past Anesthesia/Blood Transfusion Reactions: Motion Sickness, Postoperative Nausea & Vomiting (PONV) Past Psychological History: No Psychological Hx Reported Smoking Status: Never smoker Past Alcohol Use History: None Reported Past Drug Use History: None Reported - Past Family History Father Family Medical History: Cancer Additional Family Medical History / Comment(s): lung cancer with brain mets. Mother Family Medical History: Cancer Additional Family Medical History / Comment(s): skin cancer Sister(s) Family Medical History: Cancer Additional Family Medical History / Comment(s): breast cancer General Exam - General Exam Comments Initial Comments: GENERAL: Patient is well-developed and well-nourished. Patient is nontoxic and well- hydrated and is in no acute distress. ENT: Neck is soft and supple. No significant lymphadenopathy is noted. Oropharynx is clear. Moist mucous membranes. Neck has full range of motion without eliciting any pain. EYES: The sclera were anicteric and conjunctiva were pink and moist. Extraocular movements were intact and pupils were equal round and reactive to light. Eyelids were unremarkable. ABDOMEN: Soft and nontender with normal bowel sounds. Patient has what appears to be a small hernia on the left lower quadrant of his abdomen could be a small ventral hernia versus an inguinal hernia. I feel no intestinal contents SKIN: Skin is clear with no lesions or rashes and otherwise unremarkable. NEUROLOGIC: Patient is alert and oriented x3. Cranial nerves II through XII are grossly intact. Motor and sensory are also intact. Normal speech, volume and content. Symmetrical smile. MUSCULOSKELETAL: Normal extremities with adequate strength and full range of motion. LYMPHATICS: No significant lymphadenopathy is noted PSYCHIATRIC: Normal psychiatric evaluation. Limitations: no limitations Course Vital Signs 09/10/24 10:14 Temperature 97.8 F Pulse Rate 83 Respiratory 20 Rate Blood Pressure 155/96 O2 Sat by Pulse 99 Oximetry Medical Decision Making - Medical Decision Making Was pt. sent in by a medical professional or institution ([facility], [facility], urgent care, hospital, or prison...) When possible be specific @ -No Did you speak to anyone other than the patient for history (EMS, parent, family, police, friend...)? What history was obtained from this source @ -No Did you review nursing and triage notes (agree or disagree)? Why? @ -I reviewed and agree with nursing and triage notes Were old charts reviewed (outside hosp., previous admission, EMS record, old EKG, old radiological studies, urgent care reports/EKG's, prison records)? Report findings @ -No old charts were reviewed Differential Diagnosis? @ -Differential Abdominal Pain Men: Appendicitis, cholecystitis, diverticulosis, ischemic bowel, pancreatitis, hepatitis, UTI, gastroenteritis, AAA, incarcerated hernia, bowel obstruction, constipation, inflammatory bowel, hepatitis, peptic ulcer disease, splenic infarction, perforated viscus, testicular torsion, this is not meant to be an all-inclusive list EKG interpreted by me (3pts min.). @ -As above X-rays interpreted by me (1pt min.). @ -None done CT interpreted by me (1pt min.). @ -None done U/S interpreted by me (1pt. min.). @ -None done What testing was considered but not performed or refused? (CT, X-rays, U/S, labs)? Why? @ -None What meds were considered but not given or refused? Why? @ -None Did you discuss the management of the patient with other professionals (professionals i.e. , PA, [facility], lab, RT, psych nurse, geriatric social worker, bus inspector, teacher, jail officer, case manager specialist)? Give summary @ -No Was smoking cessation discussed for >3mins.? @ -No Was critical care preformed (if so, how long)? @ -No Were there social determinants of health that impacted care today? How? (Homelessness, low income, unemployed, alcoholism, drug addiction, transportation, low edu. Level, literacy, decrease access to med. care, [place] [facility], rehab)? @ -No Was there de-escalation of care discussed even if they declined (Discuss DNR or withdrawal of care, Hospice)? DNR status @ -No What co-morbidities impacted this encounter? (DM, HTN, Smoking, COPD, CAD, Cancer, CVA, ARF, Chemo, Hep., AIDS, mental health diagnosis, sleep apnea, morbid obesity)? @ -None Was patient admitted / discharged? Hospital course, mention meds given and route, prescriptions, significant lab abnormalities, going to OR and other pertinent info. @ -Patient has a small abdominal hernia there is no pain and no symptoms the patient will follow-up with surgeon Undiagnosed new problem with uncertain prognosis? @ -No Drug Therapy requiring intensive monitoring for toxicity (Heparin, Nitro, Insulin, Cardizem)? @ -No Were any procedures done? @ -No Diagnosis/symptom? @ -Abdominal hernia Acute, or Chronic, or Acute on Chronic? @ -Acute Uncomplicated (without systemic symptoms) or Complicated (systemic symptoms)? @ -Uncomplicated Side effects of treatment? @ -No Exacerbation, Progression, or Severe Exacerbation? @ -No Poses a threat to life or bodily function? How? (Chest pain, [place], [place], pneumonia, PE, COPD, DKA, ARF, appy, cholecystitis, CVA, Diverticulitis, Homicidal, Suicidal, threat to staff... and all critical care pts) @ -No Disposition Clinical Impression: Abdominal hernia Disposition: HOME SELF-CARE Condition: Good Instructions (If sedation given, give patient instructions): Ventral Hernia (E D) Is patient prescribed a controlled substance at d/c from ED?: No Referrals: Delia Puga MD [Primary Care Provider] - 1-2 days Chandler Palomino DO [Doctor of Osteopathic Medicine] - 1-2 days Time of Disposition: 12:23
[2024-09-10 12:42] VITALS: BP 148/87; PULSE 80; RESP 18; TEMP 97.6
== END 2024-09-10 12:41 | disposition home or self-care (01) ==
LOC: EC 10:07
DX: K46.9 Unspecified abdominal hernia without obstruction or gangrene (principal)
CPT/HCPCS: 99283